=== PATIENT | male | born 1950 | race Caucasian/White ===

== ENCOUNTER → 2018-03-28 14:10 | Outpatient (CLI) | payer MEDICARE, MEDICAID, SELFPAY ==
[2018-03-28 16:03] LABS: AST(SGOT) 64 U/L (15-37); Alanine Aminotransfer ALT/SGPT 71 U/L (16-61); Albumin, Serum 3.2 g/dL (3.2-5.0); Alkaline Phosphatase 88 U/L (45-117); Bilirubin, Direct 0.42 mg/dL (0.00-0.30); Globulin 3.4 g/dL (2.2-4.2); Protein, Total 6.6 g/dL (6.4-8.2)
[2018-03-28 16:21] LABS: International Normalized Ratio 1.2
[2018-03-28 16:22] LABS: Partial Thromboplast Time 33.7 Seconds (24.1-36.2)
[2018-03-31 09:46] LABS: AFP, Tumor Marker 2.3 ng/mL (0.0-8.3)
== END ==
PROVIDERS: Family Provider Family Medicine; PCP Family Medicine; Referring Provider Internal Medicine Gastroenterology; Visit Provider Internal Medicine Gastroenterology
DX: K74.60 Unspecified cirrhosis of liver (principal); B19.20 Unspecified viral hepatitis C without hepatic coma
CPT/HCPCS: 36415; 80076; 82105; 85610; 85730

== ENCOUNTER → 2018-04-02 10:30 | Outpatient (CLI) | payer MEDICARE, MEDICAID, SELFPAY ==
--- NOTE | 2018-04-02 10:33 | US_ITS ---
STUDY: ABDOMINAL ULTRASOUND - RIGHT UPPER QUADRANT REASON FOR VISIT: Male, 68 years old. Cirrhosis. TECHNIQUE: Ultrasound evaluation of the right upper quadrant was performed with real-time and static forman-scale imaging. TECHNICAL QUALITY: Adequate. COMPARISON: None. FINDINGS: Liver: The liver measures 15.9 cm. There is a heterogeneous echogenicity of the liver. The bile ducts are dilated. There is hepatic color flow. The direction of portal flow is hepatopetal. There is no demonstrated mass lesion. Gallbladder: Moderately distended gallbladder. The gallbladder wall measures 7 mm. There is a negative sonographic Miller's sign. There is pericholecystic fluid. There are no gallstones. Common Bile Duct (C.B.D.): The common bile duct measures 6 mm. Pancreas: Normal size of the head, body and tail of the pancreas. There is normal echogenicity of the pancreas. There is no demonstrated pancreatic mass or cyst. Right Kidney: Normal size of the right kidney. The right kidney measures 10.1 cm. Normal renal cortex. The right cortex measures 1.6 cm. There is no demonstrated renal mass or cyst. There is no right hydronephrosis. US/Abdomen Limited IMPRESSION: Heterogeneous liver consistent with the history of cirrhosis. No focal mass is seen. Thickened gallbladder wall with pericholecystic edema but no tenderness or stones. Electronically Signed: Cesar Hernandez MD at 23:38 EST , Service support ,
--- OUTSIDE RECORDS SUMMARY | 2018-06-07 05:22 | XMS RPT_ITS ---
:1950 Author Organization OHIP Care Team Providers Name Role Phone MARCELLA GOMEZ Attending Unavailable MARCELLA GOMEZ Referring Unavailable Sea Box Attending Unavailable Sea Box Referring Unavailable Marcella Gomez Primary Care Unavailable Sea Box Attending Unavailable eSa Box Referring Unavailable Marcella Gomez Primary Care Unavailable PROBLEMS PROBLEMS DATE TYPE CONDITION / CODE ATTENDING STATUS SOURCE 04/03/2018 Unknown K74.60 - Sea Box [facility] [place] [facility] / K74.60(ICD-10) Repository 01/05/2008 Active Chronic hepatitis, Active [facility] unspecified / [facility] [place] K73.9(ICD-10) Repository 08/16/2005 Active Essential NA Active [facility] (primary) [facility] [place] hypertension / Repository I10(ICD-10) 02/03/2018 Active Anemia, NA Active [facility] unspecified / [facility] [place] D64.9(ICD-10) Repository 02/03/2018 Active Other abnormal NA Active [facility] glucose / [facility] [place] R73.09(ICD-10) Repository PROCEDURES PROCEDURES No Procedure Records FoundRESULTS RESULTS ABDOMEN LIMITED Observed: 04/02/2018 Status: F Source: [place] 10:33 AM [facility] REPOSITORY [facility] Imaging Services [address] [place] [address] Abdomen Limited MR#: [id number] Acct: [id number] Name: RALPH MCNAMARA Rep #: [id number] : 1950 M 68 From: Cesar Hernandez MD PCP: Marcella Gomez MD Status: REG CLI Study: Abdomen Limited Date of Exam: 04/02/18 Exam# [id number] Ordering Dr: Sea Box MD STUDY: ABDOMINAL ULTRASOUND - RIGHT UPPER QUADRANT REASON FOR VISIT: Male, 68 years old. Cirrhosis. TECHNIQUE: Ultrasound evaluation of the right upper quadrant was performed with real-time and static forman-scale imaging. TECHNICAL QUALITY: Adequate. COMPARISON: None. FINDINGS: Liver: The liver measures 15.9 cm. There is a heterogeneous echogenicity of the liver. The bile ducts are dilated. There is hepatic color flow. The direction of portal flow is hepatopetal. There is no demonstrated mass lesion. Gallbladder: Moderately distended gallbladder. The gallbladder wall measures 7 mm. There is a negative sonographic Miller's sign. There is pericholecystic fluid. There are no gallstones. Common Bile Duct (C.B.D.): The common bile duct measures 6 mm. Pancreas: Normal size of the head, body and tail of the pancreas. There is normal echogenicity of the pancreas. There is no demonstrated pancreatic mass or cyst. Right Kidney: Normal size of the right kidney. The right kidney measures 10.1 cm. Normal renal cortex. The right cortex measures 1.6 cm. There is no demonstrated renal mass or cyst. There is no right hydronephrosis. US/Abdomen Limited IMPRESSION: Heterogeneous liver consistent with the history of cirrhosis. No focal mass is seen. Thickened gallbladder wall with pericholecystic edema but no tenderness or stones. Electronically Signed: Cesar Hernandez MD at 23:38 EST , Service support , CC: Marcella Gomez MD; Sea Box Telephone Advice Nurse: Signed LIVER PROFILE Collected: 03/28/2018 Status: F Source: [place] 2:33 PM [facility] REPOSITORY TYPE CODE TESTS RESULT OUT OF RANGE REFERENCE UNITS LAB L501.1500 6.4-8.2 g/dL Normal T PROT 6.6 LAB L501.1800 3.2-5.0 g/dL Normal ALB 3.2 LAB L501.1950 2.2-4.2 g/dL Normal GLOB 3.4 LAB L501.4100 15-37 U/L High AST 64 LAB L501.4305 45-117 U/L Normal ALK P 88 LAB L501.4405 16-61 U/L High ALT 71 LAB L501.4600 0.20-1.00 mg/dL High T BILI 1.50 LAB L501.4700 0.00-0.30 mg/dL High D BILI 0.42 Performed By: #### L500.3400 #### [facility] [address] [facility] [place], [place], [address] PROTHROMBIN TIME W/INR Collected: 03/28/2018 Status: F Source: [place] 2:33 PM [facility] REPOSITORY TYPE CODE TESTS RESULT OUT OF RANGE REFERENCE UNITS LAB L300.4150 11.7-14.9 SECONDS High PROTIME 15.0 LAB L300.4200 Normal INR 1.2 Performed By: #### L300.3900, L300.4310 #### [facility] [address] [place], [address] PARTIAL THROMBOPLAST Collected: 03/28/2018 Status: F Source: [place] TIME 2:33 PM [facility] REPOSITORY TYPE CODE TESTS RESULT OUT OF RANGE REFERENCE UNITS LAB L300.4310 24.1-36.2 Seconds Normal PTT 33.7 Performed By: #### L300.3900, L300.4310 #### [facility] [address] [facility] [place], [place], [address] AFP, TUMOR MARKER Collected: 03/28/2018 Status: F Source: [place] 2:33 PM [facility] REPOSITORY Order Comment: Is Patient ? N TYPE CODE TESTS RESULT OUT OF RANGE REFERENCE UNITS LAB L3300.0700 0.0-8.3 ng/mL Normal AFP TUMOR 2.3 2253 Result Comment: [facility] Electrochemiluminescence Immunoassay (ECLIA) Values obtained with different assay methods or kits cannot be used interchangeably. Results cannot be interpreted as absolute evidence of the presence or absence of malignant disease. This test is not interpretable in females. Performed at: [facility] [id number] [employer]: Sea Rasmussen PhD, Phone: [phone] Performed By: #### L3300.0700 #### [facility] (refer to report for specific site) refer to report for address and phone number CBC AND DIFFERENTIAL Collected: 02/03/2018 Status: F Source: [place] 1:52 PM [facility] REPOSITORY TYPE CODE TESTS RESULT OUT OF REFERENCE UNITS RANGE LAB WBC 3.70-11.00 k/uL WBC 3.88 LAB RBC 4.20-6.00 m/uL Low RBC 3.83 LAB HGB 13.0-17.0 g/dL Hemoglobin 13.3 LAB HCT 39.0-51.0 % Hematocrit 39.7 LAB MCV 80.0-100.0 fL MCV High 103.7 LAB MCH 26.0-34.0 pG MCH High 34.7 LAB MCHC 30.5-36.0 g/dL MCHC 33.5 LAB RDWCV 11.5-15.0 % RDW-CV High 15.1 LAB PLTCT 150-400 k/uL Low Platelet Count 97 Result Comment: Result checked and verified No clot detected. LAB MPV 9.0-12.7 fL MPV High 13.1 LAB ANEUT % Neut% 55.6 LAB AANEUT 1.45-7.50 k/uL Abs Neut 2.15 LAB ALYMP % Lymph% 23.5 LAB AALYMP 1.00-4.00 k/uL Low Abs Lymph 0.91 LAB AMONO % Lipscomb% 9.3 LAB AAMONO <0.87 k/uL Abs Lipscomb 0.36 LAB AEOS % Eosin% 10.8 LAB AAEOS <0.46 k/uL Abs Eosin 0.42 LAB ABASO % Baso% 0.8 LAB AABASO <0.11 k/uL Abs Baso 0.03 LAB AUNRBC 0 /100 WBC NRBCs 0.0 LAB ABNRBC <0.01 k/uL Absolute nRBC <0.01 LAB DTYP DTYPE Auto Diff Performed By: #### CBCDIF, CMP, HBA1C, HCQPCR #### [facility] [address] [place], [place] [address] COMP METABOLIC PANEL Collected: 02/03/2018 Status: F Source: [place] 1:52 PM [facility] REPOSITORY TYPE CODE TESTS RESULT OUT OF REFERENCE UNITS RANGE LAB TP 6.3-8.0 g/dL Protein, Total 7.3 LAB ALB 3.9-4.9 g/dL Albumin 4.0 LAB CA 8.5-10.2 mg/dL Calcium, Total 9.1 LAB TBIL 0.2-1.3 mg/dL Bilirubin, Total 0.9 LAB ALKP 38-113 U/L Alkaline Phosphatase 85 LAB AST 14-40 U/L AST High 44 LAB GLU 74-99 mg/dL Glucose High 109 Result Comment: The [place] [employer] Association (ADA) provides guidance for cutoff values for fasting glucose and random glucose. The ADA defines fasting as no caloric intake for at least 8 hours. Fas ting plasma glucose results between 100 to 125 mg/dL indicate increased risk for diabetes (prediabetes). Fasting plasma glucose results greater than or equal to 126 mg/dL meet the criteria for diagnosis of diabetes. In the absence of unequivocal hyperglycemia, results should be confirmed by repeat testing. In a patient with classic symptoms of hyperglycemia or hyperglycemic crisis, random plasma glucose results greater than or equal to 200 mg/dL meet the criteria for diagnosis of diabetes. Reference: Standards of Medical Care in Diabetes 2016, [place] Diabetes Association. Diabetes Care. 2016.39(Suppl 1). LAB BUN 9-24 mg/dL BUN 18 LAB CRET 0.73-1.22 mg/dL Creatinine 0.86 LAB NA 136-144 mmol/L Sodium 142 LAB K 3.7-5.1 mmol/L Potassium 4.3 LAB CL 97-105 mmol/L Chloride 105 LAB CO2 22-30 mmol/L CO2 25 LAB AGAP 9-18 mmol/L Anion Gap 12 LAB ALT 10-54 U/L ALT 32 LAB GFRAA eGFR- Amer. >60 LAB GFRNAA . eGFR-All Other Races >60 Result Comment: eGFR (Estimated GFR) Units of measure: mL/min/1.73 meters squared eGFR is derived from the reexpressed MDRD Study equation using the following parameters: serum creatinine, age, gender and race. The creatinine assay has been calibrated to be traceable to IDFL. An eGFR <60 mL/min/1.73m2 for >3 months is consistent with chronic kidney disease. Refer to KDOQI guidelines for clinical interpretation. In patients with unstable renal function, e.g. those with acute kidney injury, the eGFR may not accurately reflect actual GFR. Performed By: #### CBCDIF, CMP, HBA1C, HCQPCR #### [facility] [employer] [address] [id number] HEMOGLOBIN A1C Collected: 02/03/2018 Status: F Source: [place] 1:[address] [facility] REPOSITORY TYPE CODE TESTS RESULT OUT OF REFERENCE UNITS RANGE LAB HGBA1C 4.3-5.6 % Hemoglobin A1c 4.9 Result Comment: [place] Diabetes Association guidelines indicate that patients with HgbA1c in the range 5.7-6.4% are at increased risk for development of diabetes, and intervention by lifestyle modification may be beneficial. HgbA1c greater or equal to 6.5% is considered diagnostic of diabetes. LAB HBA0 mg/dL Est. Average Glucose 94 Result Comment: eAG: (Estimated average glucose) is a calculated value from HgbA1c and is national sales representative of the average blood glucose level in the last 2-3 month period. Performed By: #### CBCDIF, CMP, HBA1C, HCQPCR #### [facility] [employer] [address] [place], [place] [address] HEPATITIS C RNA Collected: 02/03/2018 Status: F Source: [place] 1:[address] [facility] REPOSITORY TYPE CODE TESTS RESULT OUT OF RANGE REFERENCE UNITS LAB HCQPCR IU/mL Abnormal Hepatitis C RNA [id number] Alert Result Comment: INTERPRETATION: Positive for HCV RNA by PCR. The Linear Range of this assay is 15 IU/mL to 100,000,000 IU/mL. Reference Range: Negative for HCV RNA Performed By: #### CBCDIF, CMP, HBA1C, HCQPCR #### [facility] [employer] [address] [place], [place] [address] PROGRESS Observed: 02/03/2018 Status: COMPLETED Source: [place] 1:[address] [facility] REPOSITORY HNO ID: [id number] Author: Marcella D Elderbrock Service: (none) Author Type: Physician Type: Progress Notes Filed: 02/03/2018 4:14 PM Note Text: Chief Complaint Patient presents with: Recheck: Medications HPI Ralph Mcnamara is a 68 year old male who presents here today for a medication follow up. Pt here today for a medication follow up. Notes that he was to be in for a 6 mo f/u but missed it [place] to 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 HM - Declines really not wanting to get shots due to feeling pretty well. HTN - Declines checking BP at home due to his machine breaking. If out at the store will check. Denies sob or dizziness. Admits to chest pain intermittent but this is an ongoing issues. Currently taking Nadolol 40 mg once daily and Lisinopril 5 mg once daily. Pain - Chronic cervical, back, shoulder and right knee pain. Uses Gabapentin 600 mg 2-3 tab po daily if needed for pain. Does have a complaint of a left twitch on the side of his head, ongoing for the last 2-3 months. GI - Complains of diarrhea for the last few months. Stools a little more solid today, but has increased his vegetables lately which may have caused it to become more solid. Past medical history, appointments, medications, allergies reviewed. Previous Medical History PAST MEDICAL HISTORY Diagnosis Date - Chronic depressive personality disorder DEPRESSION - Cirrhosis of liver without mention of alcohol - Esophageal varices without mention of bleeding - Essential hypertension, benign HTN - Loss of weight WEIGHT LOSS - Malaise and fatigue FATIGUE - Unspecified viral hepatitis C without hepatic coma HEPATITIS C Previous Surgical History PAST SURGICAL HISTORY Procedure Laterality Date - EGD W/O BRSH SPECIMEN W/BX 12/16/08 - EGD W/O OR W/BRUSH/WASH 10/10/11 EGD - EGD W/O OR W/BRUSH/WASH 10/13/11 EGD with banding - EGD W/O OR W/BRUSH/WASH 11/12/2011 EGD - PAST SURGICAL HISTORY OF REPAIR OF FRACTURED MANDIBLE - PAST SURGICAL HISTORY OF FRACTURED FOOT REPAIR Family History FAMILY HISTORY Problem Relation Age of Onset - Heart Father mi, first disease in his late 70's - None Mother - Diabetes Brother - Heart Brother - Diabetes Sister Patient Allergies ALLERGIES Allergen Reactions - No Known Allergies Current Medications Current Outpatient Prescriptions on File Prior to Visit: gabapentin (NEURONTIN) 600 mg tablet Take 1 tablet by mouth four times daily as needed for up to 90 days. lisinopril (ZESTRIL) 5 mg tablet Take 1 tablet by mouth once daily. nadolol (CORGARD) 40 mg tablet Take 1 tablet by mouth once daily. albuterol HFA (VENTOLIN HFA) 90 mcg/actuation inhaler Inhale 2 Puffs as instructed every 4 hours as needed for Wheezing/Shortness of Breath. No current facility-administered medications on file prior to visit. 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 General Appearance: Well appearing, alert, in no acute distress, well-hydrated, well nourished.. Lungs: lungs clear to auscultation. No wheezing, rhonchi, rales. Heart: RRR without murmur, gallop, or rubs. No ectopy. Abdomen: Normal abdominal exam, Abdomen soft, non-tender. Bowel sounds normal. No masses, organomegaly. Health Maintenance List ANNUAL PCP TEAM CHRONIC DISEASE VISIT due on 1969 BP CONTROLLED (<130/80) due on 1969 LUNG CANCER SCREENING due on 2006 ADULT PREVNAR-13 due on 01/14/2016 SERUM CREATININE due on 05/17/2016 PNEUMOVAX AGE 65 AND OVER WITH 5YR LOOKBACK(1) due on 05/28/2016 LIPID SCREEN due on 11/01/2016 INFLUENZA(1) due on 11/16/2017 - Declined DIABETES SCREEN due on 05/17/2018 COLORECTAL CANCER SCREENING,SEE MODIFIER due on 06/29/2019 DTAP,TDAP,TD(3 - Td) due on 05/28/2021 PROSTATE CANCER SCREENING DISCUSSION Completed HEPATITIS C SCREENING Completed Data reviewed Future labs ASSESSMENT/PLAN: 1. Essential hypertension, benign - ICD9: 401.1, ICD10: I10 (primary diagnosis) - good control - Continue current medication(s) - Goal of BP <140/90 - NADOLOL 40 MG TABLET 2. Chronic kidney disease, stage II (mild) - ICD9: 585.2, ICD10: N18.2 - LISINOPRIL 5 MG TABLET 3. Polyneuropathy in other diseases classified elsewhere (HCC) - ICD9: 357.4, ICD10: G63 - GABAPENTIN 600 MG TABLET 4. Cervical pain - ICD9: 723.1, ICD10: M54.2 - GABAPENTIN 600 MG TABLET 5. Chronic obstructive pulmonary disease, unspecified COPD type (HCC) - ICD9: 496, ICD10: J44.9 - ALBUTEROL SULFATE HFA 90 MCG/ACTUATION AEROSOL INHALER 6. Chronic hepatitis, unspecified (HCC) - ICD9: 571.40, ICD10: K73.9 Check labs 7. Anemia, unspecified type - ICD9: 285.9, ICD10: D64.9 Check labs 6 mo f/u, complete labs today I agree with the Chief Complaint, ROS, and Past Histories independently gathered by the clinical customer support analyst and the remaining scribed note accurately describes my personal service to the patient. Marcella Gmoez MD The documentation for this note was completed by Jennifer Arrieta Ma acting as scribe for Marcella Gomez MD. February 03, 2018 1:22 PM. CNOV Observed: 02/03/2018 Status: COMPLETED Source: [place] 1:[address] [facility] REPOSITORY Office Visit (FAMPWS) RALPH MCNAMARA ([id number]) 1950 M Date Time Provider Department 02/03/18 1:20 PM MARCELLA GOMEZ During your visit today, we recorded the following information about you: Pulse Respiration Blood pressure Weight 56/minute 16/minute 136/84 74 kg Marcella Gomez MD 02/03/2018 4:14 PM Signed Chief Complaint Patient presents with: Recheck: Medications HPI Ralph Mcnamara is a 68 year old male who presents here today for a medication follow up. Pt here today for a medication follow up. Notes that he was to be in for a 6 mo f/u but missed it due to being out of state. 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 HM - Declines really not wanting to get shots due to feeling pretty well. HTN - Declines checking BP at home due to his machine breaking. If out at the store will check. Denies sob or dizziness. Admits to chest pain intermittent but this is an ongoing issues. Currently taking Nadolol 40 mg once daily and Lisinopril 5 mg once daily. Pain - Chronic cervical, back, shoulder and right knee pain. Uses Gabapentin 600 mg 2-3 tab po daily if needed for pain. Does have a complaint of a left twitch on the side of his head, ongoing for the last 2-3 months. GI - Complains of diarrhea for the last few months. Stools a little more solid today, but has increased his vegetables lately which may have caused it to become more solid. Past medical history, appointments, medications, allergies reviewed. Previous Medical History PAST MEDICAL HISTORY Diagnosis Date - Chronic depressive personality disorder DEPRESSION - Cirrhosis of liver without mention of alcohol - Esophageal varices without mention of bleeding - Essential hypertension, benign HTN - Loss of weight WEIGHT LOSS - Malaise and fatigue FATIGUE - Unspecified viral hepatitis C without hepatic coma HEPATITIS C Previous Surgical History PAST SURGICAL HISTORY Procedure Laterality Date - EGD W/O BRSH SPECIMEN W/BX 12/16/08 - EGD W/O OR W/BRUSH/WASH 10/10/11 EGD - EGD W/O OR W/BRUSH/WASH 10/13/11 EGD with banding - EGD W/O OR W/BRUSH/WASH 11/12/2011 EGD - PAST SURGICAL HISTORY OF REPAIR OF FRACTURED MANDIBLE - PAST SURGICAL HISTORY OF FRACTURED FOOT REPAIR Family History FAMILY HISTORY Problem Relation Age of Onset - Heart Father mi, first disease in his late 70's - None Mother - Diabetes Brother - Heart Brother - Diabetes Sister Patient Allergies ALLERGIES Allergen Reactions - No Known Allergies Current Medications Current Outpatient Prescriptions on File Prior to Visit: gabapentin (NEURONTIN) 600 mg tablet Take 1 tablet by mouth four times daily as needed for up to 90 days. lisinopril (ZESTRIL) 5 mg tablet Take 1 tablet by mouth once daily. nadolol (CORGARD) 40 mg tablet Take 1 tablet by mouth once daily. albuterol HFA (VENTOLIN HFA) 90 mcg/actuation inhaler Inhale 2 Puffs as instructed every 4 hours as needed for Wheezing/Shortness of Breath. No current facility-administered medications on file prior to visit. 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 General Appearance: Well appearing, alert, in no acute distress, well-hydrated, well nourished.. Lungs: lungs clear to auscultation. No wheezing, rhonchi, rales. Heart: RRR without murmur, gallop, or rubs. No ectopy. Abdomen: Normal abdominal exam, Abdomen soft, non-tender. Bowel sounds normal. No masses, organomegaly. Health Maintenance List ANNUAL PCP TEAM CHRONIC DISEASE VISIT due on 1969 BP CONTROLLED (<130/80) due on 1969 LUNG CANCER SCREENING due on 2006 ADULT PREVNAR-13 due on 01/14/2016 SERUM CREATININE due on 05/17/2016 PNEUMOVAX AGE 65 AND OVER WITH 5YR LOOKBACK(1) due on 05/28/2016 LIPID SCREEN due on 11/01/2016 INFLUENZA(1) due on 11/16/2017 - Declined DIABETES SCREEN due on 05/17/2018 COLORECTAL CANCER SCREENING,SEE MODIFIER due on 06/29/2019 DTAP,TDAP,TD(3 - Td) due on 05/28/2021 PROSTATE CANCER SCREENING DISCUSSION Completed HEPATITIS C SCREENING Completed Data reviewed Future labs ASSESSMENT/PLAN: 1. Essential hypertension, benign - ICD9: 401.1, ICD10: I10 (primary diagnosis) - good control - Continue current medication(s) - Goal of BP <140/90 - NADOLOL 40 MG TABLET 2. Chronic kidney disease, stage II (mild) - ICD9: 585.2, ICD10: N18.2 - LISINOPRIL 5 MG TABLET 3. Polyneuropathy in other diseases classified elsewhere (HCC) - ICD9: 357.4, ICD10: G63 - GABAPENTIN 600 MG TABLET 4. Cervical pain - ICD9: 723.1, ICD10: M54.2 - GABAPENTIN 600 MG TABLET 5. Chronic obstructive pulmonary disease, unspecified COPD type (HCC) - ICD9: 496, ICD10: J44.9 - ALBUTEROL SULFATE HFA 90 MCG/ACTUATION AEROSOL INHALER 6. Chronic hepatitis, unspecified (HCC) - ICD9: 571.40, ICD10: K73.9 Check labs 7. Anemia, unspecified type - ICD9: 285.9, ICD10: D64.9 Check labs 6 mo f/u, complete labs today I agree with the Chief Complaint, ROS, and Past Histories independently gathered by the clinical customer support analyst and the remaining scribed note accurately describes my personal service to the patient. Marcella Gomez MD The documentation for this note was completed by Jennifer Arrieta Ma acting as scribe for Marcella Gomez MD. February 03, 2018 1:22 PM. 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) [G63] Cervical pain [M54.2] Chronic obstructive pulmonary disease, unspecified COPD type (HCC) [J44.9] Chronic hepatitis, unspecified (HCC) [K73.9] Anemia, unspecified type [D64.9] Elevated glucose [R73.09] Order(s):lisinopril (ZESTRIL) 5 mg tabletTake 1 tablet by mouth once daily.Disp: 30 tabletRfl: 12 nadolol (CORGARD) 40 mg tabletTake 1 tablet by mouth once daily.Disp: 30 tabletRfl: 12 gabapentin (NEURONTIN) 600 mg tabletTake 1 tablet by mouth four times daily as needed for up to 180 days.Disp: 120 tabletRfl: 5 albuterol HFA (VENTOLIN HFA) 90 mcg/actuation inhalerInhale 2 Puffs as instructed every 4 hours as needed for Wheezing/Shortness of Breath.Disp: 1 InhalerRfl: 2 HCV QUANT RNA BY PCR [SQHCQPCR] Order #: [id number] FUTURE COMP METABOLIC PANEL [SQCMP] Order #: [id number] FUTURE CBC + DIFF [SQCBCDIF] Order #: [id number] FUTURE HGB A1C [CWRPI6N] Order #: [id number] FUTURE Prescriptions as of 02/03/2018 Sig: LISINOPRIL 5 MG TABLET Take 1 tablet by mouth once d* NADOLOL 40 MG TABLET Take 1 tablet by mouth once d* GABAPENTIN 600 MG TABLET Take 1 tablet by mouth four t* ALBUTEROL SULFATE HFA 90 MCG/* Inhale 2 Puffs as instructed * Problem List As Of Date 02/03/2018 Noted Resolved BENIGN HYPERTENSION [I10] INVALID FOR* CHRONIC HEPATITIS NOS [K73.9] INVALID FOR* More... LUMBAGO [M54.5] INVALID FOR* HYPERTENSION NOS [I10] INVALID FOR* NEUROPATHY IN OTHER DIS [G63] INVALID FOR* CIRRHOSIS OF LIVER NOS [K74.60] INVALID FOR* CHRONIC KIDNEY DISEASE, STAGE II (MILD) [N18.2] INVALID FOR* More... Unspecified Anemia [D64.9] INVALID FOR* Esophageal Varices without Mention of Bleeding *INVALID FOR* Acute Gastritis without Mention of Hemorrhage [*INVALID FOR* Thrombocytopenia [D69.6] INVALID FOR* COPD (chronic obstructive pulmonary disease) [J*INVALID FOR* History of drug abuse [Z87.898] INVALID FOR* Cervical pain [M54.2] INVALID FOR* Prescriptions ordered this encounter Disp Refills Start End LISINOPRIL 5 MG TABLET 30 t* 12 02/03/2018 Route: ORAL Sig: Take 1 tablet by mouth once daily. NADOLOL 40 MG TABLET 30 t* 12 02/03/2018 Route: ORAL Sig: Take 1 tablet by mouth once daily. GABAPENTIN 600 MG TABLET 120 * 5 02/03/2018 08/02/2018 Route: ORAL Sig: Take 1 tablet by mouth four times daily as needed for up to 180 days. ALBUTEROL SULFATE HFA 90 MCG/ACTUATI* 1 In* 2 02/03/2018 Route: INHALATION Sig: Inhale 2 Puffs as instructed every 4 hours as needed for Wheezing/Shortness of Breath. Medications Discontinued During This Encounter lisinopril (ZESTRIL) 5 mg tablet 30 t* 12 01/25/2017 02/03/2018 Route: ORAL Sig: Take 1 tablet by mouth once daily. Disc: Reason for discontinue is not on file. nadolol (CORGARD) 40 mg tablet 30 t* 12 01/25/2017 02/03/2018 Route: ORAL Sig: Take 1 tablet by mouth once daily. Disc: Reason for discontinue is not on file. gabapentin (NEURONTIN) 600 mg tablet 120 * 2 11/15/2017 02/03/2018 Route: ORAL Sig: Take 1 tablet by mouth four times daily as needed for up to 90 days. Disc: Reason for discontinue is not on file. albuterol HFA (VENTOLIN HFA) 90 mcg/* 1 In* 2 01/25/2017 02/03/2018 Route: INHALATION Sig: Inhale 2 Puffs as instructed every 4 hours as needed for Wheezing/Shortness of Breath. Disc: Reason for discontinue is not on file. Disposition: Return in about 6 months (around 08/03/2018). Follow-up and Disposition History Recorded Encounter Status:Closed by MARCELLA GOMEZ MD on 02/03/18 IRMA Observed: 07/09/2017 Status: COMPLETED Source: [place] 12:[address] [facility] REPOSITORY Patient Outreach ([facility]) RALPH MCNAMARA ([id number]) 1950 M Date Time Provider Department 07/09/17 MARCELLA GOMEZ [facility] During your visit today, we recorded the following information about you: Allergies As of Date: 07/09/2017 Noted Allergy Reaction NO KNOWN ALLERGIES 06/13/2009 Date Reviewed: 01/22/2017 Reviewed by: Marisela Alvarez Ma - Fully Assessed Visit Diagnosis:Medication management [Z79.899] Order(s):BASIC METABOLIC PNL [SQBMP] Order #: [id number] FUTURE HGB A1C [RXOGY9O] Order #: [id number] FUTURE LIPID PANEL BASIC [SQLIPB] Order #: [id number] FUTURE Prescriptions as of 07/09/2017 Sig: LISINOPRIL 5 MG TABLET Take 1 tablet by mouth once d* NADOLOL 40 MG TABLET Take 1 tablet by mouth once d* ALBUTEROL SULFATE HFA 90 MCG/* Inhale 2 Puffs as instructed * X GABAPENTIN 600 MG TABLET Take 1 tablet by mouth four t* Problem List As Of Date 07/09/2017 Noted Resolved BENIGN HYPERTENSION [I10] INVALID FOR* CHRONIC HEPATITIS NOS [K73.9] INVALID FOR* More... LUMBAGO [M54.5] INVALID FOR* HYPERTENSION NOS [I10] INVALID FOR* NEUROPATHY IN OTHER DIS [G63] INVALID FOR* CIRRHOSIS OF LIVER NOS [K74.60] INVALID FOR* CHRONIC KIDNEY DISEASE, STAGE II (MILD) [N18.2] INVALID FOR* More... Unspecified Anemia [D64.9] INVALID FOR* Esophageal Varices without Mention of Bleeding *INVALID FOR* Acute Gastritis without Mention of Hemorrhage [*INVALID FOR* Thrombocytopenia [D69.6] INVALID FOR* COPD (chronic obstructive pulmonary disease) [J*INVALID FOR* History of drug abuse [Z87.898] INVALID FOR* Cervical pain [M54.2] INVALID FOR* Encounter Status:Closed by [employer], PRODUSER on 12/27/17 ALLERGIES ALLERGIES DATE TYPE / CODE NAME / CODE REACTION SEVERITY SOURCE 06/13/2009 Drug NO KNOWN [facility] Class/49121 ALLERGIES [address] [place] 1003(SNOMED Repository CT) ENCOUNTERS ENCOUNTERS ADMIT/DISCHARGE ACCOUNT ADMITTING ENCOUNTER LOCATION SOURCE NUMBER CLASS 04/02/2018 [id number] General acute hospital ing:US Repository 03/28/2018 [id number] General acute hospital ing:MTLAB Repository 02/03/2018/02/04/20 [id number] Ambulatory [address] Repository 02/03/2018/02/05/20 [id number] Ambulatory [address] Repository PAYERS PAYERS ENCOUNTER GUARANTOR PAYER SUBSCRIBER SOURCE 04/02/2018 RALPH W Primary RALPH W Devan [id number] Insurance:MEDICARE TORRENCEDOB: [address], PART A [id number] [address]Lcj: Number: Repository [id number] () Date:2018-03-28 04/02/2018 Secondary RALPH W Devan Insurance:MEDICAIDPol TORRENCEDOB: Community icy Number: [id number] [facility] [id number] Repository Date:2018-03-28 04/02/2018 Tertiary NOT GIVENUNK [place] Insurance:SELF PAY [facility] Number: Effective Repository Date:2018-03-28 03/28/2018 RALPH W Primary RALPH W Devan [id number] Insurance:MEDICARE TORRENCEDOB: [address], PART A [id number] [address]Ket: Number: Repository [id number] (HP) Date:2018-03-28 03/28/2018 Secondary RALPH W [place] Insurance:MEDICAIDPol TORRENCEDOB: Community icy Number: [id number] [facility] [id number] Repository Date:2018-03-28 03/28/2018 Tertiary NOT GIVENUNK [place] Insurance:SELF PAY [facility] Number: Effective Repository Date:2018-03-28
== END ==
PROVIDERS: Family Provider Family Medicine; PCP Family Medicine; Referring Provider Internal Medicine Gastroenterology; Visit Provider Internal Medicine Gastroenterology
DX: K74.60 Unspecified cirrhosis of liver (principal)
CPT/HCPCS: 76705

== ENCOUNTER 2018-04-15 13:12 | Emergency (ER) | payer MEDICARE, MEDICAID, SELFPAY ==
[2018-04-15 13:13] VITALS: BP 150/91; PULSE 58; RESP 16; TEMP 36.6; O2SAT 97; BMI 24.3
--- NOTE | 2018-04-15 14:06 | RAD_ITS ---
STUDY: X-RAY - UNILATERAL RIBS ( RIGHT ) WITH CHEST REASON FOR EXAM: Male, 68 years old. With pain following a fall. TECHNIQUE - RIBS: 4 view(s) of the ribs. TECHNIQUE - CHEST: Single AP portable view of the chest. COMPARISON: None. FINDINGS - RIBS: Normal visualized ribs without a demonstrated fracture. FINDINGS - CHEST: The lungs are clear and expanded. There is no demonstrated pleural abnormality. There is borderline cardiomegaly. Normal mediastinum and juve. Normal visualized pulmonary arteries. There is atherosclerotic tortuosity of the aortic arch and descending thoracic aorta. Normal visualized thoracic spine. There is degenerative osteoarthritis of the bilateral shoulders. There is no demonstrated abnormality of the visualized soft tissue structures of the upper abdomen. RAD/Ribs Uni Min 3V w/PA Chest IMPRESSION: RIBS: Normal x-ray examination of the ribs. CHEST: No acute abnormality is seen. Electronically Signed: Gabe Urbina MD at 15:15 EST , Service support ,
--- NOTE | 2018-04-15 14:07 | RAD_ITS ---
STUDY: X-RAY - LEFT SHOULDER REASON FOR EXAM: Male, 68 years old. Pain following a fall. TECHNIQUE: 4 view(s) of the shoulder. COMPARISON: None. FINDINGS: Normal glenohumeral articulation. There is degenerative arthrosis of the acromioclavicular joint without inferior osseous spur formation. Narrowing of the space between the humeral head and the acromion suggestive of rotator cuff disease. Normal acromion. Normal humeral head and visualized proximal humerus. The soft tissue structures are unremarkable. Normal visualized pulmonary apex. RAD/Shoulder min 2 Views IMPRESSION: Mild degenerative changes of the acromioclavicular joint. Narrowing of the space between the humeral head and the acromion is suggestive of rotator cuff disease. Electronically Signed: Gabe Urbina MD at 15:14 EST , Service support ,
[2018-04-15] MEDS: HYDROcodone Bitartrate/Apap 5/325 Tablet PO (14:56)
--- NOTE | 2018-04-15 15:07 | ED.VISSUMM ---
- ER Visit Summary Date of Service: 04/15/18 Chief Complaint: Fell on the ice History of Present Illness: The patient is a 68 M tree of hepatitis C, cirrhosis, renal insufficiency and hypertension. Patient states he fell on the ice today his legs and apparently landed on his right rib cage. Denies hitting his head. Denies hitting his left shoulder was is also having left shoulder pain. He denies any headache or neck pain. He is on no blood thinners. He denies any abdominal pain. Physical Examination: Older male no acute distress. Vital signs are stable he is afebrile. Pulse ox 97% room air no signs of hypoxia. H EENT exam unremarkable. No signs of trauma to his face or scalp nontender. Pupils round reactive light. No dental injury. C-spine, T-spine, L-spine nontender. Back nontender except for his right lateral rib cage. There is no ecchymosis or bruising. No subcu air or crepitance. No CVA tenderness. Lungs clear to auscultation bilaterally. Heart regular rate and rhythm no murmur rate about 60. His right anterior lateral chest wall is tender palpation. There is no crepitus or subcu air. No bruising. No bony deformities. Left rib cage is tender. No deformity. Abdomen soft. Nontender. Nondistended normal bowel sounds no peritoneal signs. She is moving all 4 extremities. Neurovascular intact. He has mild tenderness to his left shoulder but there is no deformity and is normal range of motion. Elbow forearm, left wrist and left hand are unremarkable. Right upper extremity both lower extremities are unremarkable normal range of motion nontender. Neurologically is awake alert with no focal motor deficits. Test Results: Left shoulder x-ray shows no acute abnormality. Chest x-ray and rib films show no acute fracture. No pneumothorax. No hemothorax. No acute abnormalities. Emergency Department Course and Treatment: Patient treated with [place] x2 for pain. Repeat exam is doing well. Patient given prescription for [place] for pain. Treatment Plan: [place] Motrin for pain. Ice to his chest wall. Pillow for support. Follow-up with not improving. Disposition: Discharge Impression: Slipped and fell on the ice Right rib cage contusions Left shoulder strain This note was generated with [employer] dictation software. It may contain incorrect words, spelling, and punctuation that were not noted in review of the chart prior to signing ED Disposition - Plan for ED Patient: Chief Complaint: Fall Referrals: Derrick Al MD [Primary Care Provider] -
--- NOTE | 2018-04-15 15:12 | ED.DEP ---
ED Disposition - Plan for ED Patient: Disposition: Home or Assisted Living Chief Complaint: Fall Instructions: ED Contusion Vs Minor Fx Rib, ED Sprain Shoulder Prescriptions: Hydrocodone Bitart/Apap 5-325 [[place] 5MG-325MG] 1 - 2 tab PO Q4H PRN PRN 5 Days #20 tab PRN Reason: Pain Referrals: Derrick Al MD [Primary Care Provider] - 1 Week if not improving Additional Instructions: Ice to right rib cage. Pillow for support. [place] and Motrin for pain. Follow-up in 1-2 weeks not improving.
--- NOTE | 2018-04-15 15:16 | DCINST.ED_ITS ---
ED Disposition - Plan for ED Patient: Disposition: Home or Assisted Living Chief Complaint: Fall Instructions: ED Contusion Vs Minor Fx Rib, ED Sprain Shoulder Prescriptions: Hydrocodone Bitart/Apap 5-325 [[place] 5MG-325MG] 1 - 2 tab PO Q4H PRN PRN 5 Days #20 tab PRN Reason: Pain Referrals: Derrick Al MD [Primary Care Provider] - 1 Week if not improving Additional Instructions: Ice to right rib cage. Pillow for support. [place] and Motrin for pain. Follow-up in 1-2 weeks not improving.
[2018-04-15 15:23] VITALS: BP 133/82; PULSE 58; RESP 16; O2SAT 97
== END 2018-04-15 15:24 | disposition home or self-care (01) ==
PROVIDERS: Emergency Provider Emergency Medicine; Family Provider Family Medicine; PCP Family Medicine
DX: S20.211A Contusion of right front wall of thorax, initial encounter (principal); S46.912A Strain of unspecified muscle, fascia and tendon at shoulder and upper arm level, left arm, initial encounter; W00.0XXA Fall on same level due to ice and snow, initial encounter; Y93.9 Activity, unspecified; Y92.9 Unspecified place or not applicable; I10 Essential (primary) hypertension; K74.60 Unspecified cirrhosis of liver; N28.9 Disorder of kidney and ureter, unspecified; Z86.19 Personal history of other infectious and parasitic diseases; Z79.899 Other long term (current) drug therapy
CPT/HCPCS: 71101; 73030; 99284

== ENCOUNTER → 2018-11-03 | Outpatient (CLI) | payer MEDICARE, MEDICAID, SELFPAY ==
[2018-11-05 03:06] LABS: HCV Quant. RNA PCR HCV Not Detected IU/mL (.)
== END | disposition home or self-care (01) ==
LOC: LAB.FUTURE 11:27
PROVIDERS: Family Provider Family Medicine; PCP Family Medicine; Referring Provider Internal Medicine Gastroenterology; Visit Provider Internal Medicine Gastroenterology
DX: B19.20 Unspecified viral hepatitis C without hepatic coma (principal)
CPT/HCPCS: 36415; 87522

== ENCOUNTER → 2019-10-06 16:38 | Outpatient (CLI) | payer MEDICARE, MEDICAID, SELFPAY ==
[2019-10-06 17:35] LABS: Hematocrit 38.1 % (40-54); Hemoglobin 12.7 g/dL (13.0-16.5); Mean Corp Hgb Conc 33.3 g/dL (32-36); Mean Corpuscular Volume 107.9 fL (80-94); Mean Platelet Vol. 11.8 fl (6.2-12.0); Platelet Count 224 K/mm3 (150-450); RBC Distribution Width CV 15.9 % (11.6-14.6); RBC Distribution Width SD 63.3 fl (35.1-43.9); Red Blood Count 3.53 M/mm3 (4.6-6.2); White Blood Count 4.5 K/mm3 (4.4-11.0)
[2019-10-06 17:42] LABS: Prothrombin Time (Protime)PT. 12.7 SECONDS (11.7-14.9)
[2019-10-06 17:43] LABS: Partial Thromboplast Time 28.3 Seconds (24.1-36.2)
[2019-10-06 18:06] LABS: ALB/GLOB Ratio 0.7 RATIO (0.9-2.4); AST(SGOT) 85 U/L (15-37); Alanine Aminotransfer ALT/SGPT 82 U/L (16-61); Alkaline Phosphatase 159 U/L (45-117); Anion Gap 3 (5-15); BUN 24 mg/dL (7-18); BUN/Creat Ratio 25.6 RATIO (10-20); CRP 5.42 mg/L (0.0-3.0); Calcium,Total 8.8 mg/dL (8.5-10.1); Chloride 107 mmol/L (98-107); Creatinine, Serum 0.94 mg/dL (0.70-1.30); EST Glomerular Filtration Rate 85 mL/min (>60); Est Glom Filt Rate - Afr Amer 103 mL/min (>60); Globulin 4.3 g/dL (2.2-4.2); Glucose 92 mg/dL (74-106); Potassium 4.1 mmol/L (3.5-5.1); Protein, Total 7.3 g/dL (6.4-8.2); Sodium Level 138 mmol/L (136-145)
== END ==
PROVIDERS: PCP Family Medicine; Referring Provider Internal Medicine Gastroenterology; Visit Provider Internal Medicine Gastroenterology
DX: K74.60 Unspecified cirrhosis of liver (principal)
CPT/HCPCS: 36415; 80053; 82105; 85027; 85610; 85730; 86140

== ENCOUNTER → 2019-10-13 16:57 | Outpatient (CLI) | payer MEDICARE, MEDICAID, SELFPAY ==
--- NOTE | 2019-10-13 17:04 | CT_ITS ---
STUDY: CT ABDOMEN WITH CONTRAST REASON FOR EXAM: Male, 69 years old. CIRRHOSIS AND DIARRHEA RADIATION DOSAGE (If Supplied By Facility): CTDIvol = ( 11.60 ) mGy, DLP = ( 279.32 ) mGycm TECHNIQUE: Transaxial images were obtained post I.V. administration of 75 CC ISOVUE 370, and with oral contrast. Sagittal and coronal images were reconstructed. Individualized dose optimization techniques were used for this CT. COMPARISON: None. FINDINGS: The visualized lung bases are unremarkable. The visualized portions of the heart are within normal limits. Extensive and dilated esophageal varices. There is a diffuse contour abnormality of the liver and marked heterogeneity consistent with severe cirrhotic changes. Liver masses are not excluded. Normal gallbladder and extrahepatic biliary system. Heterogeneous, normal-sized spleen. Normal pancreas. Extensive epigastric varices. Heterogeneous 6 cm solid right adrenal mass. Mildly large left adrenal gland. Normal right kidney. Normal left kidney. Normal visualized stomach. Normal small intestine. Normal colon. There is non-visualization of the appendix. Mild ascites. Diffuse increased density of the abdominal and pelvic fat consistent with edema. There is diffuse atherosclerotic calcification of the abdominal aorta, without a demonstrated aneurysm. Normal inferior vena cava. Normal retroperitoneum. Normal abdominal wall. There are diffuse degenerative changes of the visualized lumbar spine. CT/Abdomen WITH IV Contrast IMPRESSION: Findings consistent with severe cirrhosis and evidence for portal hypertension with extensive varices. Liver masses are not excluded. 6 cm right adrenal mass, recommend six-month follow-up. Electronically Signed: Cesar Hernandez MD at 18:46 EDT , Service support ,
== END ==
PROVIDERS: PCP Family Medicine; Referring Provider Internal Medicine Gastroenterology; Visit Provider Internal Medicine Gastroenterology
DX: K74.60 Unspecified cirrhosis of liver (principal)
CPT/HCPCS: 74160; Q9967

== ENCOUNTER → 2019-10-23 13:23 | Outpatient (CLI) | payer MEDICARE, MEDICAID, SELFPAY ==
--- NOTE | 2019-10-23 13:28 | MRI_ITS ---
STUDY: MRI ABDOMEN WITH AND WITHOUT CONTRAST REASON FOR EXAM: Male, 69 years old. ATTN: LIVER Cirrhosis, abn. CT, portal hypertension. TECHNIQUE: Standardized fat and water weighted pulse sequences were obtained in all 3 orthogonal planes post contrast administration. 13ml IV Dotarem was administered for the contrast portion of the examination. COMPARISON: CT 10/13/2019 FINDINGS: The visualized lung bases are unremarkable. The visualized portions of the heart are within normal limits. Moderate amount of ascites. There is a diffuse contour abnormality of the liver consistent with cirrhotic changes. There are multiple T2 hyperintense enhancing masses of the liver worrisome for multifocal hepatocellular carcinoma or metastatic disease. The largest lesion is in the posterior segment the right lobe of the liver and measures 9 cm in diameter. Prominent esophageal varices consistent with the portosystemic shunt from portal hypertension. Normal gallbladder and extrahepatic biliary system. Small splenic cyst. Normal pancreas. 4 cm enhancing mass of the right adrenal gland does not demonstrate signal loss on the out of phase gradient echo images. Possibilities include an atypical adenoma, adrenal cortical carcinoma, or metastatic disease. Normal left adrenal gland. Normal right kidney. Normal left kidney. Normal visualized stomach. Normal small intestine. Normal colon. There is non-visualization of the appendix. Normal abdominal aorta. Normal inferior vena cava. Normal retroperitoneum. Normal abdominal wall. Normal osseous structures. MRI/MRI Abd WITH and W/O Contrast IMPRESSION: 1. Cirrhosis with a moderate amount of ascites and multiple enhancing masses worrisome for multifocal hepatocellular carcinoma or metastatic disease largest lesion in the posterior segment the right lobe measuring 9 cm. 2. 4 cm enhancing mass of the right adrenal gland. Differential diagnosis includes atypical adenoma, adrenal cortical carcinoma, or metastatic disease. Electronically Signed: Edmund Angulo MD at 8:44 EDT Tel , Service support ,
== END ==
PROVIDERS: PCP Family Medicine; Referring Provider Internal Medicine Gastroenterology; Visit Provider Internal Medicine Gastroenterology
DX: K74.60 Unspecified cirrhosis of liver (principal)
CPT/HCPCS: 74183; A9575

== ENCOUNTER 2019-11-11 16:37 | Inpatient (IN) | payer MEDICARE, MEDICAID, SELFPAY ==
[2019-11-11] VITALS (8 sets, daily range): BP systolic 99–125; BP diastolic 61–88; PULSE 61–86; RESP 18–20; TEMP 36–36.8; O2SAT 97–100; BMI 22.8; BMI 21.6
--- NOTE | 2019-11-11 16:46 | RAD_ITS ---
STUDY: X-RAY - PELVIS AND LEFT HIP REASON FOR EXAM: Male, 69 years old. fall, left hip pain TECHNIQUE: Reason views of the pelvis and hip. COMPARISON: None. FINDINGS: There is a non-specific bowel gas pattern. Normal visualized soft tissue structures. Normal bilateral iliac wings, sacroiliac joints and visualized sacrum. Normal bilateral superior and inferior pubic rami. Normal pubic symphysis. Normal bilateral ischial tuberosities. There is an acute spiral fracture of the subtrochanteric femoral shaft with overlapping and lateral angulation of fracture fragments. RAD/HIP, UNI W/ Pelvis 2-3 Views IMPRESSION: Acute displaced and angulated subtrochanteric fracture of the left hip Electronically Signed: Christiano Cartwright MD at 17:30 EDT , Service support ,
[2019-11-11] MEDS: 0.9% Normal Saline 1,000 ML 1000 ML IV (16:54)
--- NOTE | 2019-11-11 17:10 | RAD_ITS ---
STUDY: X-RAY CHEST REASON FOR EXAM: Male, 69 years old. Pre-op for hip fracture TECHNIQUE: 2 AP portable views COMPARISON: 2011 FINDINGS: EKG leads overlie the chest. There are interstitial changes of the lungs. There is no demonstrated pleural abnormality. Normal size heart. Normal mediastinum and juve. Normal visualized pulmonary arteries. Normal visualized aortic arch and descending thoracic aorta. Normal visualized thoracic spine. Normal visualized ribs, clavicles, and shoulders. There is no demonstrated abnormality of the visualized soft tissue structures of the upper abdomen. RAD/Chest 1 View (Portable) IMPRESSION: Chronic interstitial changes, no superimposed acute pulmonary process Electronically Signed: Bautista Collins MD at 17:33 EDT , Service support ,
[2019-11-11 17:50] LABS: Anion Gap 8 (5-15); BUN 30 mg/dL (7-18); Calcium,Total 8.6 mg/dL (8.5-10.1); Chloride 106 mmol/L (98-107); Creatinine, Serum 1.25 mg/dL (0.70-1.30); EST Glomerular Filtration Rate 61 mL/min (>60); Est Glom Filt Rate - Afr Amer 74 mL/min (>60); Glucose 118 mg/dL (74-106); Potassium 3.8 mmol/L (3.5-5.1); Sodium Level 140 mmol/L (136-145)
[2019-11-11] MEDS: fentaNYL 100 MCG/2 ML Ampul 50 MCG IV ×2 (17:55→18:31)
--- NOTE | 2019-11-11 17:56 | ED.VISSUMM ---
- ER Visit Summary Date of Service: 11/11/19 Chief Complaint: Left hip injury History of Present Illness: The patient is a 69 M who fell, his dog pulled him. He landed on his left hip. He complains of pain to the area. Denies any other injuries. Not on blood thinners. EMS gave fentanyl and a bag of fluids. Physical Examination: Blood pressure 99/68. Otherwise vitals unremarkable. Heart is regular. Lungs clear. Abdomen soft. Left hip is tender to palpation, shortened, rotated. Neurovascular intact distally. Test Results: EKG showed what appeared to be atrial fibrillation at a rate of 80. CBC pending. Coags pending. Glucose 118 and BUN 30. Chest x-ray shows chronic changes. Left hip shows a sub-troches fracture. Emergency Department Course and Treatment: Patient received IV fluids for a borderline blood pressure. He had no evidence of bleeding or other evidence of shock. His blood pressure improved and he received fentanyl. X-ray showed left hip fracture. Work-up still pending. He does have an EKG which shows what appears to be atrial fibrillation. No history of this. Rate is normal. Patient was discussed with the hospitalist and orthopedics and will be admitted for further care. Treatment Plan: As above Disposition: Admission Impression: Left hip fracture, atrial fibrillation This note was generated with [employer] dictation software. It may contain incorrect words, spelling, and punctuation that were not noted in review of the chart prior to signing ED Disposition - Plan for ED Patient: Referrals: Derrick Al MD [Primary Care Provider] -
--- NOTE | 2019-11-11 18:00 | PCM.HP.STD ---
Problem List (1) Closed left hip fracture Status: Acute Qualifiers: Encounter type: initial encounter Qualified Code(s): S72.002A - Fracture of unspecified part of neck of left femur, initial encounter for closed fracture (2) New onset a-fib Status: Acute (3) Hepatitis C Status: Chronic Qualifiers: Viral hepatitis chronicity: unspecified Hepatic coma status: without hepatic coma Qualified Code(s): B19.20 - Unspecified viral hepatitis C without hepatic coma (4) Liver cirrhosis Status: Chronic Qualifiers: Hepatic cirrhosis type: unspecified hepatic cirrhosis Ascites presence: without ascites Qualified Code(s): K74.60 - Unspecified cirrhosis of liver (5) HTN (hypertension) Status: Chronic Qualifiers: Hypertension type: essential hypertension Qualified Code(s): I10 - Essential (primary) hypertension (6) Tobacco use Status: Chronic (7) Anxiety and depression Status: Chronic (8) Anemia Status: Chronic Qualifiers: Anemia type: unspecified type Qualified Code(s): D64.9 - Anemia, unspecified History of Present Illness Date of Admission: 11/11/19 Chief Complaint: Fall, L hip intractable pain The patient is a 69 y/o M w/ PMHx: Hepatitis C with Liver Cirrhosis following w/ Dr. Box, HTN, Chronic neuropathy, Former Tobacco use who presents to the [facility] ED on 11/11/19 with history of being pulled over by his dog, falling onto his left side with intractable pain and debility as well as malrotation prompting ED presentation. Patient does note that secondary to the disability and severe pain he laid on the ground for quite a while. Patient currently rating his pain 10 out of 10 in severity, sharp, constant. Patient continues to have sensation to his left lower extremity and peripheral pulses intact. He was administered IV fluids on route by EMS. Upon ED presentation patient was noted to be rate controlled atrial fibrillation and denies having ever had this prior but does state that over the last at least 2 to 3 months he has noted some irregular palpitations but no concurrent chest pain, dyspnea associated. He notes he is normally very active. Work-up in the ED included T 97.6, heart rate 69, BP initially 99/60 with improvement to 125/82 with IV fluids, respiratory rate 20, 97% room air, CBC with WBC 7, hemoglobin 10.5, platelet 304 with no's left shift noted, noted lymphopenia, MCV 106.9,, coags pending upon requested evaluation of patient, BMP with BUN/creatinine 30/1.25, glucose 118, plain film of the left hip and pelvis with an acute displaced and angulated subtrochanteric fracture of the left hip, chest x-ray with chronic interstitial changes with no acute cardiopulmonary findings, EKG with new onset atrial fibrillation unknown to him. In the ED patient administered normal saline 1L as well as fentanyl 50 mcg IV x1. Past Medical History Past Medical History (Chronic Problems): Chronic Problems Hepatitis C (Chronic) Liver cirrhosis (Chronic) HTN (hypertension) (Chronic) Tobacco use (Chronic) Anxiety and depression (Chronic) Anemia (Chronic) Allergies No Known Allergies Allergy (Verified 04/15/18 13:16) Home Medications: Ambulatory Orders Medication Instructions Recorded Lisinopril 5 mg PO DAILY 04/15/18 Duloxetine HCl 60 mg PO DAILY 11/11/19 Furosemide [Lasix] 40 mg PO DAILY 11/11/19 Gabapentin 600 mg PO 4X/DAY 11/11/19 Metoprolol Succinate [Toprol Xl] 100 mg PO 11/11/19 Spironolactone [Aldactone] 50 - 100 mg PO DAILY 11/11/19 Tamsulosin HCl 0.4 mg PO QHS 11/11/19 Surgical History: - - Patient denies any prior surgical history. Psychiatric History: Anxiety, Depression Lives: Alone Smoking Status: Current every day smoker - Patient notes ongoing cigar 1-3 daily smoking usage. Tobacco Use: Cigars Alcohol: None Drugs: - - Patient notes distant history of IV drug abuse, clean for many years. - *Family History Maternal History Items: Heart Disease Paternal History Items: Heart Disease Review of Systems Constitutional: Reports: Malaise, Weakness, Fatigue. Denies: Anorexia, Chills, Fever, Weight Change HEENT: Denies: Head Aches, Sinus Congestion, Sinus Drainage Cardiovascular: Reports: Palpitations. Denies: Chest Pain, Chest Pressure, Chest Tightness, Light Headedness, Orthopnea, Syncope Respiratory: Denies: Cough, Shortness of Breath, Shortness of breath at rest, Shortness of breath upon exertion, Sputum production, Wheezing Gastrointestinal: Denies: Abdominal Pain, Nausea, Vomiting Genitourinary: Denies: Dysuria Musculoskeletal: Reports: Joint Pain, Joint stiffness, Joint swelling, Joint Tenderness, Leg Pain Skin: Denies: Rash, Wounds Neurological: Denies: Numbness, Tingling, Focal weakness Psychiatric: Reports: Anxiety, Depression. Denies: Homicidal Ideations, Suicidal Ideations Hematologic/ Lymphatic: Reports: Anemia. Denies: Easy Bruising, Easy Bleeding VTE Information - Inpt Only VTE Present on Admission: No VTE Mechan Device Prophylaxis: SCD's VTE Pharm Prophylaxis ordered?: No Reason prophylaxis not ordered:: Medical Contraindication - Holding for OR. Patient Problems: Active and Suspected Problems Closed left hip fracture (Acute) New onset a-fib (Acute) Subjective: Patient laying in the ED bed, severely uncomfortable, agonizing ongoing pain he notes. Objective: Physical Examination: General: awake, alert, oriented x 3 and cooperative, laying in the ED bed, severely uncomfortable appearing. Skin: normal color, turgor, no icterus, cyanosis, occasional abrasion to the extremities. HEENT: AT/NC, EOMI, PERRLA, dry MM, no carotid bruits or JVD noted. Lungs: Diminished breath sounds, greater bases, moderate effort, no rales, ronchi or wheezing. Heart: Irregular, rate controlled; no gallop, rub audible. Abdomen: soft, thin habitus, NTTP, no evidence of any ascites, ND, normal BS, positive HM. Extremities: no cyanosis, clubbing, status post mechanical fall with left hip fracture, rotated, peripheral pulses intact, sensation intact. Neurological: patient awake, alert, oriented x 3; cognitive function intact; pupils equally reactive to light and accomodation; cranial nerves II-XII grossly normal, moving all 4 extremities however deferred any aggressive left lower extremity movement given hip fracture, strength severely global decrease secondary to acute presentation. Psychiatric: affect appears severely uncomfortable, no acute evidence of depressive or anxiety feelings. - Physical Exam Vitals/I&O's: Vital Signs Temp Pulse Resp BP Pulse Ox 97.6 F L 69 20 H 125/82 H 97 11/11/19 16:39 11/11/19 16:39 11/11/19 16:39 11/11/19 17:51 11/11/19 16:39 Oxygen Delivery Method Room Air Weight: 154 lb 5.177 oz Body Mass Index (BMI) 22.8 Laboratory Results 11/11/19 17:10: WBC Pending, RBC Pending, Hgb Pending, Hct Pending, MCV Pending, MCH Pending, MCHC Pending, RDW Std Deviation Pending, RDW Coeff of Nannette Pending, Plt Count Pending, Neut % (Auto) Pending, Absolute Neuts (auto) Pending 11/11/19 17:10: PT Pending, INR Pending, APTT Pending 11/11/19 17:10: Sodium 140, Potassium 3.8, Chloride 106, Carbon Dioxide 26.0, Anion Gap 8, BUN 30 H, Creatinine 1.25, Estim Creat Clear Calc 56.00, Est GFR (MDRD) Af Amer 74, Est GFR (MDRD) Non-Af 61, BUN/Creatinine Ratio 24.0 H, Glucose 118 H, Calcium 8.6 Assessment/Plan All Active Problems Closed left hip fracture (Acute) New onset a-fib (Acute) The patient is a 69 y/o M w/ PMHx: Hepatitis C with Liver Cirrhosis following w/ Dr. Box, HTN, Chronic neuropathy, Former Tobacco use who presents to the [facility] ED on 11/11/19 with history of being pulled over by his dog, falling onto his left side with intractable pain and debility as well as malrotation prompting ED presentation. 1. General debility, L hip pain s/p mechanical fall w/ displaced and angulated subtrochanteric fracture of the left hip: Plain film noting acute displaced and angulated subtrochanteric fracture of the left hip, chest x-ray with chronic interstitial changes with no acute cardiopulmonary findings, EKG however with new onset atrial fibrillation and per discussion with patient possibly ongoing for at least 2 months. Orthopedic surgery consulted from ED. Will admit to MS, maintain NPO, continue gentle IVFs, obtain TSH, Mag level, ICa, UA, UCx, barbosa placement, monitor I/Os, frequent positioning, fall precautions, type and screen w/ plan for T+C 2 u for OR pending OR date. Pain, anti-emetic regimen. PT/OT following operative intervention. CM consulted for discharge planning. Per NSQIP acute PE given patient age group 65-74, male, severe systemic disease although no ascites within 30 days, hypertensive requiring medications, ongoing tobacco use patient with no elevated above expected average risk for serious complications therefore if cardiac evaluation including echocardiogram and telemetry monitoring as well as enzymes not concerning appearing would plan to progress to OR in the afternoon on 11/12/2019. This was also relayed to the orthopedic surgeon. 2. New onset, Paroxsymal atrial fibrillation: EKG in ED w/ atrial fibrillation, unclear timeline, new onset. Will maintain on telemetry, obtain cardiac enzyme serial set, obtain magnesium level, obtain ECHO, obtain TSH level. Given planned OR will defer any full anticoagulation. If cardiac work-up not marked will plan to progress to OR. 3. Macrocytic anemia, appears acute on chronic although only 1 comparison and recent: Admission hemoglobin 10.5, unclear prior baseline, MCV 106.9, will obtain vitamin B12, folic acid, iron panel. Last comparison 10/06/2019 with hemoglobin 12.7 at that time, given decrease will also obtain guaiac although patient currently denies any significant stool changes. 4. Chronic hepatitis C with Cirrhosis: Following with GI Dr. Box per records, from discussion suspect patient has been treated, will obtain hepatic profile, will continue metoprolol, spironolactone, lasix therapy. Coags normal. 5. Hypertension: Continue home regimen including Lasix, lisinopril, metoprolol, spironolactone with hold parameters, PRN hydralazine. 6. Anxiety and depression: We will continue home duloxetine regimen. 7. Chronic neuropathy: We will continue patient home gabapentin regimen with hold parameters given sedation. 8. BPH: We will continue patient home Flomax regimen. 9. DVT Prophylaxis: SCDs, hold prophylaxis given planned operative intervention and again evaluation of anemia. 10. CODE status: Patient does not have healthcare part of attorney general nor living will. Given presentation discussed CODE status at length including difference between FULL code, DNR-CCA and DNR-CC status. Following discussions about the differences in these status, requested Full Code status. Advanced Care Planning Face to Face Time: 16 minutes. Inpatient E&M: 41408 Init Hosp L3 Procedures: 23267 Advncd Care Plan 30 Min
[2019-11-11 18:02] LABS: Absolute Lymphocyte Count 0.35 X10^3/uL (0.83-4.51); Absolute Neutrophil Count 5.9 X10^3/uL (2.0-7.7); Basophil# 0.03 X10^3/uL; Basophil% 0.4 % (0-1); Eosinophil# 0.13 X10^3/uL; Eosinophils% 1.9 % (0-5); Hemoglobin 10.5 g/dL (13.0-16.5); Lymphocyte # 0.35 X10^3/ul (4.0); Mean Corp Hgb Conc 33.9 g/dL (32-36); Mean Corpuscular Hgb 36.2 pg (27.0-32.0); Mean Corpuscular Volume 106.9 fL (80-94); Mean Platelet Vol. 11.9 fl (6.2-12.0); Monocyte# 0.47 X10^3/uL; Monocyte% 6.7 % (0-10); NRBC Flagged by Analyzer 0 % (0-5); Neutrophil # 5.94 X10^3/uL (2.7-7.7); Neutrophil % 85.3 % (47-70); POSITIVE DIFFERENTIAL YES; Platelet Count 304 K/mm3 (150-450); RBC Distribution Width CV 16.2 % (11.6-14.6); RBC Distribution Width SD 63.7 fl (35.1-43.9)
[2019-11-11 18:05] LABS: Differential Indicated SCAN CRITERIA MET
[2019-11-11 18:29] LABS: International Normalized Ratio 1.2; Prothrombin Time (Protime)PT. 14.7 SECONDS (11.7-14.9)
[2019-11-11 18:30] LABS: Partial Thromboplast Time 28.7 Seconds (24.1-36.2)
--- NOTE | 2019-11-11 18:36 | EKG12_ITS ---
Test Reason : MORNING EKG Blood Pressure : / mmHG Vent. Rate : 088 BPM Atrial Rate : 096 BPM P-R Int : 000 ms QRS Dur : 092 ms QT Int : 390 ms P-R-T Axes : 000 051 035 degrees QTc Int : 471 ms Atrial fibrillation Abnormal ECG When compared with ECG of 09-OCT-2011 15:06, Atrial fibrillation has replaced Sinus rhythm Confirmed by MIRIAM ALONSO, VICK ([id number]), videotape editor PRISCA ZARAGOZA ([id number]) on 11/16/2019 1:49:01 PM Referred By: RUKHSANA Confirmed By:CARON PINEDA MD
[2019-11-11 18:43] LABS: Acanthocytes 2+; Anisocytosis 2+; Ovalocyte 2+; Platelet Estimate ADEQUATE (ADEQ); Red Cell Morphology N CHROM NORMAL (NORM C&C); Schistocytes 1+
--- NOTE | 2019-11-11 18:49 | ECHOD_ITS ---
Reason For Study: Arrhythmia Procedure This was a 2D Doppler, Color Flow transthoracic echocardiogram. The study was technically difficult. Patient scanned supine due to left hip fracture. Exam performed portable in patient room. Left Ventricle Normal LV size. The estimated ejection fraction is 70 %. Unable to assess diastolic dysfunction. No regional wall motion abnormalities noted. Right Ventricle Normal RV size. Normal systolic function. Atria The left atrium is moderately enlarged. The right atrium is mildly enlarged. No doppler evidence for ASD. Mitral Valve There is no mitral valve stenosis. Trivial mitral valve insufficiency. Tricuspid Valve There is no tricuspid stenosis. Pulmonary artery systolic pressure is 35-40 mmHg. Trivial tricuspid valve insufficiency. Aortic Valve Trisinus/trileaflet aortic valve. Moderate diffuse aortic valve thickening. Mild aortic stenosis. No aortic valve insufficiency. Pulmonic Valve There is no pulmonic valvular stenosis. No pulmonic valve insufficiency. Great Vessels Normal aortic root. Pericardium/Pleural No pericardial effusion. MMode/2D Measurements & Calculations LVIDd: 4.0 cm IVSd: 0.89 cm LVOT diam: 2.2 cm LVIDs: 2.2 cm LVPWd: 0.86 cm LVOT area: 3.8 cm2 RVDd: 3.3 cm FS: 45.0 % Ao root diam: 4.7 cm LAV(MOD-bp): 56.8 ml LA A4 area: 23.2 cm2 LAV(MOD-bp) Indexed: 31.4 ml/m2 LAV(MOD-sp2): 42.4 ml LAV(MOD-sp4): 68.4 ml LA dimension(2D): 3.7 cm RA A4 area: 19.5 cm2 Doppler Measurements & Calculations MV E max andres: 99.4 cm/sec Ao V2 max: 213.4 cm/sec LV V1 max: 124.3 cm/sec Ao max P.3 mmHg LV V1 max P.2 mmHg Ao V2 mean: 144.8 cm/sec LV V1 mean P.3 mmHg Ao mean P.4 mmHg LV V1 mean: 85.2 cm/sec Ao V2 VTI: 37.8 cm LV V1 VTI: 22.9 cm DUNCAN(I,D): 2.3 cm2 DUNCAN(V,D): 2.2 cm2 SV(LVOT): 86.3 ml PA V2 max: 129.8 cm/sec TR max andres: 268.1 cm/sec TR max P.8 mmHg Interpretation Summary The estimated ejection fraction is 70 %. Unable to assess diastolic dysfunction. The left atrium is moderately enlarged. Trivial mitral valve insufficiency. Mild aortic stenosis. Ordering Physician: Holly Quick Referring Physician: MD Mikaela Derrick Performed By: Sri Ortiz RDCS
[2019-11-11] MEDS: 0.9% Normal Saline 1,000 ML 100 ML IV (19:09)
[2019-11-11] MEDS: Morphine 2 MG/ML Syringe IV ×2 (19:20→23:47)
[2019-11-11] MEDS: 0.9% Saline Lock 10 ML Syringe IV ×2 (19:21→23:47)
[2019-11-11 19:37] LABS: Vitamin B12 804 pg/mL (211-911)
[2019-11-11 19:42] LABS: Magnesium 1.7 mg/dL (1.6-2.6)
[2019-11-11 19:47] LABS: Ferritin 435 ng/mL (26-388); Iron 87 ug/dL (65-175); Iron Binding Capacity,Total 204 ug/dL (250-450); PERCENT IRON SATURATION 42.6 % (15.0-55.0); T4 Free Direct 1.13 ng/dL (0.76-1.46)
[2019-11-11] MEDS: Gabapentin 600 MG Tablet PO (21:01)
[2019-11-11] MEDS: Tamsulosin HCl 0.4 MG Capsule PO (21:01)
[2019-11-11] MEDS: oxyCODONE 5 MG Tablet PO (21:01)
[2019-11-12] VITALS (30 sets, daily range): BP systolic 41–119; BP diastolic 36–87; PULSE 84–136; RESP 14–31; TEMP 35.7–37.3; O2SAT 97–100; BMI 21.6
[2019-11-12] MEDS: 0.9% Normal Saline 1,000 ML 100 ML IV (05:05)
--- NOTE | 2019-11-12 05:55 | EKG12_ITS ---
Test Reason : PRE OP Blood Pressure : / mmHG Vent. Rate : 080 BPM Atrial Rate : 052 BPM P-R Int : 000 ms QRS Dur : 080 ms QT Int : 404 ms P-R-T Axes : 000 073 066 degrees QTc Int : 465 ms Atrial fibrillation with premature ventricular or aberrantly conducted complexes Abnormal ECG Confirmed by MIRIAM ALONSO, VICK ([id number]), story editor PRISCA ZARAGOZA ([id number]) on 11/13/2019 11:28:25 A M Referred By: CARYN Confirmed By:CARON PINEDA MD
[2019-11-12 06:01] LABS: Specimen Processing Control PASS
[2019-11-12 06:02] LABS: Probe Check PASS
[2019-11-12 06:31] LABS: Absolute Lymphocyte Count 0.65 X10^3/uL (0.83-4.51); Absolute Neutrophil Count 6.4 X10^3/uL (2.0-7.7); Basophil# 0.02 X10^3/uL; Basophil% 0.3 % (0-1); Eosinophil# 0.03 X10^3/uL; Eosinophils% 0.4 % (0-5); Hematocrit 25.2 % (40-54); Hemoglobin 8.3 g/dL (13.0-16.5); Lymphocyte # 0.65 X10^3/ul (4.0); Lymphocyte % 8.3 % (19-41); Mean Corp Hgb Conc 32.9 g/dL (32-36); Mean Corpuscular Hgb 35.2 pg (27.0-32.0); Mean Corpuscular Volume 106.8 fL (80-94); Mean Platelet Vol. 11.8 fl (6.2-12.0); Monocyte# 0.69 X10^3/uL; Monocyte% 8.8 % (0-10); NRBC Flagged by Analyzer 0 % (0-5); Neutrophil # 6.39 X10^3/uL (2.7-7.7); Neutrophil % 81.8 % (47-70); Platelet Count 246 K/mm3 (150-450); RBC Distribution Width CV 16.2 % (11.6-14.6); Red Blood Count 2.36 M/mm3 (4.6-6.2); White Blood Count 7.8 K/mm3 (4.4-11.0)
[2019-11-12 07:00] LABS: ALB/GLOB Ratio 0.6 RATIO (0.9-2.4); AST(SGOT) 100 U/L (15-37); Alanine Aminotransfer ALT/SGPT 84 U/L (16-61); Alkaline Phosphatase 97 U/L (45-117); Anion Gap 6 (5-15); BUN 36 mg/dL (7-18); BUN/Creat Ratio 30.3 RATIO (10-20); Calcium,Total 7.8 mg/dL (8.5-10.1); Chloride 107 mmol/L (98-107); Cholesterol 234 mg/dL (200); Creatinine, Serum 1.19 mg/dL (0.70-1.30); EST Glomerular Filtration Rate 65 mL/min (>60); Est Glom Filt Rate - Afr Amer 78 mL/min (>60); Estimated Creatinine Clearance 55.88 ml/min; Globulin 3.2 g/dL (2.2-4.2); Glucose 118 mg/dL (74-106); High Density Lipoprotein 18 mg/dL; Potassium 4.2 mmol/L (3.5-5.1); Protein, Total 5.2 g/dL (6.4-8.2); Sodium Level 139 mmol/L (136-145); Triglycerides 100 mg/dL; Very Low Density Lipoprotein 20 mg/dL (5-40)
[2019-11-12 07:03] LABS: Phosphorus 4.7 mg/dL (2.5-4.9)
--- NOTE | 2019-11-12 11:22 | CASEMGMT ---
Assessment- SW completed assessment at bedside with patient. SW also confirmed his address and phone number as well as his son's phone number. Living situation- Patient lives alone in a 1 story home with a few entry steps PCP: Dr Al Specialists: Dr Box Pharmacy: [facility] DME: marcio ADL's/IADL's: Patient states he is normally independent. The only thing he does not do is drive himself. His son drives him where he needs to go. He manages his own meds, bathes himself, cooks, cleans, and pays bills on his own. He does not use any assistive devices to get around. Past SNF/rehab: None Past HH: None LW: None and is not interested POA: None and is not interested Plan: Patient is not sure about a discharge plan yet. SW explained that generally speaking patient's with hip fractures go to a retirement at discharge for short term rehab. His son lives next door and can assist as needed. SW explained that we will continue to follow and assist with d/c planning as appropriate. 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
--- NOTE | 2019-11-12 12:12 | PCM.PROGNOTE ---
<Perla Dior - Last Filed: 11/12/19 12:22> Patient Problems: Active and Suspected Problems Closed left hip fracture (Acute) New onset a-fib (Acute) Subjective: Patient seen and examined. Left hip pain controlled with PRN pain regimen. Denies chest pain, shortness of breath, palpitations. Plan for OR this afternoon. - Physical Exam Vitals/I&O's: Vital Signs Temp Pulse Resp BP Pulse Ox 99.1 F 87 16 96/63 99 11/12/19 11:45 11/12/19 11:45 11/12/19 11:45 11/12/19 11:45 11/12/19 11:45 Oxygen Flow Rate (L/min) 2 Oxygen Delivery Method Nasal Cannula Weight: 146 lb 9.718 oz Body Mass Index (BMI) 21.6 Intake and Output for Last 24 Hours 11/10/19 11/11/19 11/12/19 23:59 23:59 23:59 Intake Total 1000 / 1050 1691.67 / 1691.67 Output Total 575 / 575 Balance 1000 / 925 1116.67 / 1116.67 General: Alert, Oriented x3, Cooperative HEENT: Atraumatic, PERRLA, EOMI, Normocephalic Neck: Supple, No JVD, Negative Carotid Bruits Lungs: Clear to auscultation, Normal air movement Cardiovascular: - - Atrial fibrillation, rate controlled Abdomen: Bowel Sounds Present, Soft, Non Tender, Non-Distended Extremities: No clubbing, No cyanosis, No edema, Capillary Refill Less than 3 Seconds Skin: No rashes, No breakdown Musculoskeletal: No Tenderness to Palpation of Joints or Extremities, Tenderness - Left hip Neurological: Cranial nerves II-XII grossly intact, Neuro grossly intact Psych/Mental Status: Normal Affect, Appropriate Laboratory Results 11/11/19 17:05: Crossmatch See Detail 11/11/19 17:10: WBC 7.0, RBC 2.90 L, Hgb 10.5 L, Hct 31.0 L, MCV 106.9 H, MCH 36.2 H, MCHC 33.9, RDW Std Deviation 63.7 H, RDW Coeff of Nannette 16.2 H, Plt Count 304, MPV 11.9, Immature Gran % (Auto) 0.700, Neut % (Auto) 85.3 H, Lymph % (Auto) 5.0 L, Ramsey % (Auto) 6.7, Eos % (Auto) 1.9, Baso % (Auto) 0.4, Absolute Neuts (auto) 5.9, Absolute Lymphs (auto) 0.35 L, Nucleated RBC % 0, Differential Comment , Diff Path Review May foll, Platelet Estimate ADEQUATE, RBC Morphology N CHROM, Anisocytosis 2+, Ovalocytes 2+, Acanthocytes (Spur) 2+, Schistocytes 1+ 11/11/19 17:10: PT 14.7, INR 1.2, APTT 28.7 11/11/19 17:10: Sodium 140, Potassium 3.8, Chloride 106, Carbon Dioxide 26.0, Anion Gap 8, BUN 30 H, Creatinine 1.25, Estim Creat Clear Calc 56.00, Est GFR (MDRD) Af Amer 74, Est GFR (MDRD) Non-Af 61, BUN/Creatinine Ratio 24.0 H, Glucose 118 H, Calcium 8.6 11/11/19 17:10: Iron 87, TIBC 204 L, Iron Saturation 42.6, Ferritin 435 H, Folate 6.60, TSH 20.20 H, Free T4 1.13 11/11/19 17:10: Magnesium 1.7, Troponin I < 0.015 11/11/19 17:10: Vitamin B12 804 11/11/19 17:10: Blood Type A POSITIVE, Antibody Screen NEGATIVE 11/11/19 20:35: Troponin I < 0.015 11/12/19 00:35: Troponin I < 0.015 11/12/19 03:40: COVID-19 (LARRY) Not Detected 11/12/19 05:35: WBC 7.8, RBC 2.36 L, Hgb 8.3 L, Hct 25.2 L, MCV 106.8 H, MCH 35.2 H, MCHC 32.9, RDW Std Deviation 63.0 H, RDW Coeff of Nannette 16.2 H, Plt Count 246, MPV 11.8, Immature Gran % (Auto) 0.400, Neut % (Auto) 81.8 H, Lymph % (Auto) 8.3 L, Ramsey % (Auto) 8.8, Eos % (Auto) 0.4, Baso % (Auto) 0.3, Absolute Neuts (auto) 6.4, Absolute Lymphs (auto) 0.65 L, Nucleated RBC % 0 11/12/19 05:35: Sodium 139, Potassium 4.2, Chloride 107, Carbon Dioxide 26.0, Anion Gap 6, BUN 36 H, Creatinine 1.19, Estim Creat Clear Calc 55.88, Est GFR (MDRD) Af Amer 78, Est GFR (MDRD) Non-Af 65, BUN/Creatinine Ratio 30.3 H, Glucose 118 H, Calcium 7.8 L, Total Bilirubin 1.60 H, AST 100 H, ALT 84 H, Alkaline Phosphatase 97, Total Protein 5.2 L, Albumin 2.0 L, Globulin 3.2, Albumin/Globulin Ratio 0.6 L, Triglycerides 100, Cholesterol 234 H, LDL Cholesterol 196 H, VLDL Cholesterol 20, HDL Cholesterol 18 L 11/12/19 05:35: Phosphorus 4.7 Current Medications Acetaminophen (Tylenol) 650 mg PO Q6H PRN PRN PRN Reason: Pain Score 1-10 /Temp>100.7 Albuterol Sulfate (Ventolin Aerosols) 2.5 mg INHALATION Q2H PRN PRN PRN Reason: Dyspnea, wheezing Duloxetine HCl (Cymbalta) 60 mg PO QHS [facility] Furosemide (Lasix) 40 mg PO QODAY@2200 [facility] Gabapentin (Neurontin) 600 mg PO 4X/DAY [facility] Last Admin: 11/12/19 09:58 Dose: Not Given Documented by: Hydralazine HCl (Apresoline Iv) 10 mg IV Q4H PRN PRN PRN Reason: SBP > 160 Sodium Chloride () 1,000 mls @ 100 mls/hr IV .Q10H [facility] Last Infusion: 11/12/19 11:30 Dose: 0 mls/hr Documented by: Lisinopril (Zestril) 5 mg PO DAILY [facility] Last Admin: 11/12/19 10:37 Dose: Not Given Documented by: Metoprolol Succinate (Toprol Xl (Beta Anand)) 100 mg PO QHS [facility] Morphine Sulfate () 2 - 4 mg IV Q3H PRN PRN PRN Reason: Pain Score 6-10/10 Last Admin: 11/11/19 23:47 Dose: 4 mg Documented by: Morphine Sulfate () 1 mg IV Q4H PRN PRN PRN Reason: Pain Score 4-5/10 Oxycodone HCl (Oxyir) 5 mg PO Q4H PRN PRN PRN Reason: Pain Score 4-5/10 Last Admin: 11/11/19 21:01 Dose: 5 mg Documented by: Sodium Chloride () 10 - 40 ml IV UD PRN PRN Reason: SALINE FLUSH Last Admin: 11/11/19 23:47 Dose: 10 ml Documented by: Spironolactone (Aldactone) 100 mg PO QHS [facility] Tamsulosin HCl (Flomax) 0.4 mg PO QHS [facility] Last Admin: 11/11/19 21:01 Dose: 0.4 mg Documented by: Medical Necessity - Tobacco Use Smoking Status: Current every day smoker Tobacco Use: Cigars Assessment/Plan All Active Problems Closed left hip fracture (Acute) New onset a-fib (Acute) 1. Acute traumatic left hip fracture secondary to mechanical fall prior to admission-plan for OR this afternoon. NSQIP as noted in H&P. Plan for OR this afternoon pending echocardiogram. PT/OT. PRN pain regimen. Management per Ortho. 2. New diagnosis atrial fibrillation-rate controlled. Continue home metoprolol regimen. Echocardiogram pending. Will assess need for anticoagulation following surgery. Troponin negative. EKG without ST-T changes. 3. Elevated TSH-suspect reactive. Free T4 normal. 4. Acute on chronic macrocytic anemia-2 units PRBC ordered given plan for OR. Do not have significant prior labs for comparison however hemoglobin 10/06/2019 12.7. Hemoglobin this morning 8.3. Stool for occult blood ordered. No evidence of active bleeding. 5. Chronic hepatitis C with cirrhosis-following with JOSEFINA Fonseca. Continue metoprolol, spironolactone, Lasix. 6. Hypertension-stable, continue current regimen. 7. Anxiety/depression-continue duloxetine. 8. Chronic neuropathy-on gabapentin. 9. BPH-continue Flomax. DVT prophylaxis-SCDs This patient was seen by JOSE Presley under the supervision of Dr. Christianson. <Marisela Christianson - Last Filed: 11/12/19 16:38> Subjective: Pt only c/o L hip pain. States that he sees his PCP every 6 mos. Never been told before that he had PAF. Feels ok and has been feeling well otherwise. - Physical Exam Vitals/I&O's: Vital Signs Temp Pulse Resp BP Pulse Ox 98.5 F 100 16 110/70 98 11/12/19 13:39 11/12/19 13:39 11/12/19 13:39 11/12/19 13:39 11/12/19 13:39 Oxygen Flow Rate (L/min) 2 Oxygen Delivery Method Nasal Cannula Weight: 66.5 kg Body Mass Index (BMI) 21.6 Intake and Output for Last 24 Hours 11/10/19 11/11/19 11/12/19 23:59 23:59 23:59 Intake Total 1000 / 1050 1691.67 / 1691.67 Output Total 575 / 575 Balance 1000 / 925 1116.67 / 1116.67 General: Alert, Oriented x3, Cooperative, No apparent distress, Well developed, Well nourished, - - Thin, WM who appears older than stated age, lying in bed HEENT: Atraumatic, PERRLA, EOMI, Normocephalic, EAC Clear Oral: Moist Mucosa, No Gingival or Mucosal Lesions/ Ulcerations, - - poor dentition Neck: Supple, No JVD, Negative Carotid Bruits, No Nodes, No Nuchal Rigidity, Trachea Midline, Thyroid Normal Size and Texture Lungs: Clear to auscultation, No rhonchi, No wheeze, No rales, Diminished - diffusely Cardiovascular: Regular rate, Normal S1, Normal S2, No murmurs, No Ectopic Activity, No rub noted, No Gallop, - - Atrial fibrillation, rate controlled, irreg rhythm Abdomen: Bowel Sounds Present, Soft, Non Tender, Non-Distended, No hernias noted Extremities: No clubbing, No cyanosis, No edema, Capillary Refill Less than 3 Seconds, Peripheral Pulses Normal Skin: No rashes, No breakdown Musculoskeletal: No Muscle Wasting, Arthritic Changes, Tenderness - Left hip, decreased lean mm mass, - - L hip is shortened and ER Lymphatic: No Cervical, Supraclavicular, or Inguinal Adenopathy Neurological: Cranial nerves II-XII grossly intact, Neuro grossly intact, Muscle tone normal, Coordination normal Psych/Mental Status: Normal Affect, Appropriate, Alert and oriented to time, place, person, mood and affect Laboratory Results 11/11/19 17:05: Crossmatch See Detail 11/11/19 17:10: WBC 7.0, RBC 2.90 L, Hgb 10.5 L, Hct 31.0 L, MCV 106.9 H, MCH 36.2 H, MCHC 33.9, RDW Std Deviation 63.7 H, RDW Coeff of Nannette 16.2 H, Plt Count 304, MPV 11.9, Immature Gran % (Auto) 0.700, Neut % (Auto) 85.3 H, Lymph % (Auto) 5.0 L, Ramsey % (Auto) 6.7, Eos % (Auto) 1.9, Baso % (Auto) 0.4, Absolute Neuts (auto) 5.9, Absolute Lymphs (auto) 0.35 L, Nucleated RBC % 0, Differential Comment , Diff Path Review Reviewed, Platelet Estimate ADEQUATE, RBC Morphology N CHROM, Anisocytosis 2+, Ovalocytes 2+, Acanthocytes (Spur) 2+, Schistocytes 1+ 11/11/19 17:10: PT 14.7, INR 1.2, APTT 28.7 11/11/19 17:10: Sodium 140, Potassium 3.8, Chloride 106, Carbon Dioxide 26.0, Anion Gap 8, BUN 30 H, Creatinine 1.25, Estim Creat Clear Calc 56.00, Est GFR (MDRD) Af Amer 74, Est GFR (MDRD) Non-Af 61, BUN/Creatinine Ratio 24.0 H, Glucose 118 H, Calcium 8.6 11/11/19 17:10: Iron 87, TIBC 204 L, Iron Saturation 42.6, Ferritin 435 H, Folate 6.60, TSH 20.20 H, Free T4 1.13 11/11/19 17:10: Magnesium 1.7, Troponin I < 0.015 11/11/19 17:10: Vitamin B12 804 11/11/19 17:10: Blood Type A POSITIVE, Antibody Screen NEGATIVE 11/11/19 20:35: Troponin I < 0.015 11/12/19 00:35: Troponin I < 0.015 11/12/19 03:40: COVID-19 ([facility]ARRY) Negative 11/12/19 05:35: WBC 7.8, RBC 2.36 L, Hgb 8.3 L, Hct 25.2 L, MCV 106.8 H, MCH 35.2 H, MCHC 32.9, RDW Std Deviation 63.0 H, RDW Coeff of Nannette 16.2 H, Plt Count 246, MPV 11.8, Immature Gran % (Auto) 0.400, Neut % (Auto) 81.8 H, Lymph % (Auto) 8.3 L, Ramsey % (Auto) 8.8, Eos % (Auto) 0.4, Baso % (Auto) 0.3, Absolute Neuts (auto) 6.4, Absolute Lymphs (auto) 0.65 L, Nucleated RBC % 0 11/12/19 05:35: Sodium 139, Potassium 4.2, Chloride 107, Carbon Dioxide 26.0, Anion Gap 6, BUN 36 H, Creatinine 1.19, Estim Creat Clear Calc 55.88, Est GFR (MDRD) Af Amer 78, Est GFR (MDRD) Non-Af 65, BUN/Creatinine Ratio 30.3 H, Glucose 118 H, Calcium 7.8 L, Total Bilirubin 1.60 H, AST 100 H, ALT 84 H, Alkaline Phosphatase 97, Total Protein 5.2 L, Albumin 2.0 L, Globulin 3.2, Albumin/Globulin Ratio 0.6 L, Triglycerides 100, Cholesterol 234 H, LDL Cholesterol 196 H, VLDL Cholesterol 20, HDL Cholesterol 18 L 11/12/19 05:35: Phosphorus 4.7 Current Medications Acetaminophen (Tylenol) 650 mg PO Q6H PRN PRN PRN Reason: Pain Score 1-10 /Temp>100.7 Albuterol Sulfate (Ventolin Aerosols) 2.5 mg INHALATION Q2H PRN PRN PRN Reason: Dyspnea, wheezing Duloxetine HCl (Cymbalta) 60 mg PO QHS [facility] Furosemide (Lasix) 40 mg PO QODAY@2200 [facility] Gabapentin (Neurontin) 600 mg PO 4X/DAY [facility] Last Admin: 11/12/19 14:50 Dose: Not Given Documented by: Hydralazine HCl (Apresoline Iv) 10 mg IV Q4H PRN PRN PRN Reason: SBP > 160 Sodium Chloride () 1,000 mls @ 100 mls/hr IV .Q10H [facility] Last Infusion: 11/12/19 13:47 Dose: 100 mls/hr Documented by: Cefazolin Sodium () 1 gm in 50 mls @ 150 mls/hr IV Q8 [facility] Stop: 11/13/19 06:19 Lisinopril (Zestril) 5 mg PO DAILY [facility] Last Admin: 11/12/19 10:37 Dose: Not Given Documented by: Metoprolol Succinate (Toprol Xl (Beta Anand)) 100 mg PO QHS [facility] Morphine Sulfate () 2 - 4 mg IV Q3H PRN PRN PRN Reason: Pain Score 6-10/10 Last Admin: 11/12/19 13:44 Dose: 2 mg Documented by: Morphine Sulfate () 1 mg IV Q4H PRN PRN PRN Reason: Pain Score 4-5/10 Ondansetron HCl (Zofran) 4 mg IV Q8H PRN PRN PRN Reason: Nausea Oxycodone HCl (Oxyir) 5 mg PO Q4H PRN PRN PRN Reason: Pain Score 4-5/10 Last Admin: 11/11/19 21:01 Dose: 5 mg Documented by: Sodium Chloride () 10 - 40 ml IV UD PRN PRN Reason: SALINE FLUSH Last Admin: 11/11/19 23:47 Dose: 10 ml Documented by: Spironolactone (Aldactone) 100 mg PO QHS [facility] Tamsulosin HCl (Flomax) 0.4 mg PO QHS [facility] Last Admin: 11/11/19 21:01 Dose: 0.4 mg Documented by: Assessment/Plan I agree with the above and the following is a reflection of my independent history and physical exam ASSESSMENT Acute L Subtrochanteric Hip fracture New Dx A-Fib TSH elevation Acute on Chronic Macrocytic Anemia Chronic Hep C with Cirrhosis ([facility]) HTN Neuropathy H/O Tobacco Abuse COPD JEFFREY Hyperlipidemia PLAN -NSQIP as noted in H&P -ECHO is pending and if abn will consult cardiology prior to OR -Rate is controlled for A-fib -suspect pt has had this and been asymptomatic -pt was transfused by anesthesia for hgb 8.3 prior to OR to optimize O2 carrying capacity -continue Metoprolol -start OAC when ok per Ortho -will likely need rehab at d/c -continue home meds for BP as ordered but hold ACEI -start statin for lipids -decrease IVF to 50cc/hr after OR and if able to eat and drink will d/completely -with TSH would have pt f/u in 4 weeks with PCP and repeat TSH and Free T4 -suspect possible subclinical hypothyroidism with TSH at 20 but wouldn't treat now with high nml FT4
--- NOTE | 2019-11-12 12:59 | PCM.NTREPORT ---
Nutrition Therapy Report - History Nutrition Services has been consulted to:: Manage nutrient details of diet order Current diet / nutrition support order:: NPO for procedure. - Anthropometric Measurements Height:: 5 ft 9 in Weight:: 66.5 kg Body Mass Index (BMI):: 21.6 - Relevant Labs Relevant Labs:: RBC 2.36 M/mm3 (4.6-6.2) L 11/12/19 05:35 Hgb 8.3 g/dL (13.0-16.5) L 11/12/19 05:35 Hct 25.2 % (40-54) L 11/12/19 05:35 MCV 106.8 fL (80-94) H 11/12/19 05:35 MCH 35.2 pg (27.0-32.0) H 11/12/19 05:35 RDW Std Deviation 63.0 fl (35.1-43.9) H 11/12/19 05:35 RDW Coeff of Nannette 16.2 % (11.6-14.6) H 11/12/19 05:35 Neut % (Auto) 81.8 % (47-70) H 11/12/19 05:35 Lymph % (Auto) 8.3 % (19-41) L 11/12/19 05:35 Absolute Lymphs (auto) 0.65 X10^3/uL (0.83-4.51) L 11/12/19 05:35 BUN 36 mg/dL (7-18) H 11/12/19 05:35 BUN/Creatinine Ratio 30.3 RATIO (10-20) H 11/12/19 05:35 Glucose 118 mg/dL (74-106) H 11/12/19 05:35 Calcium 7.8 mg/dL (8.5-10.1) L 11/12/19 05:35 TIBC 204 ug/dL (250-450) L 11/11/19 17:10 Ferritin 435 ng/mL (26-388) H 11/11/19 17:10 Total Bilirubin 1.60 mg/dL (0.20-1.00) H 11/12/19 05:35 AST 100 U/L (15-37) H 11/12/19 05:35 ALT 84 U/L (16-61) H 11/12/19 05:35 Total Protein 5.2 g/dL (6.4-8.2) L 11/12/19 05:35 Albumin 2.0 g/dL (3.2-5.0) L 11/12/19 05:35 Albumin/Globulin Ratio 0.6 RATIO (0.9-2.4) L 11/12/19 05:35 Cholesterol 234 mg/dL (200) H 11/12/19 05:35 LDL Cholesterol 196 mg/dL (0-130) H 11/12/19 05:35 HDL Cholesterol 18 mg/dL (40-) L 11/12/19 05:35 TSH 20.20 uIU/mL (0.358-3.74) H 11/11/19 17:10 - Assessment Food / Nutrition-Related History:: Pt reports appetite/intake not so good lately because I was put on a new medication that has made me feel sick; started new med 4-5 days ago per pt, intitial day experienced nausea w/ episode of vomiting, continues to experience nausea no further bouts vomiting noted. 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 States prior to intitiation of new med normal appetite, typically consuming 2 meals per day. Notes unintentional wt loss of ~25# over the past 2 months w/ UBW 170#. CBW 146.6#-- wt loss 23.4#/13.8% x 2 months (severe). +NFPE: severe temporal scooping/depression, severe orbital bone hollow look/depression, severe clavicle bone protrusion, moderate interosseous muscle depression. Notes clothes have been fitting looser and feeling weaker. Reports experiencing ongoing diarrhea x 1 year, PCP aware and sent pt to see specialist pt notes something was found wrong w/ my liver but they cannot operate because I have anemia so they were going to place a stent but all that has been on hold now. Pt w/ hx Hepatitis C, liver cirrhosis. - Nutrition Diagnosis Problem / Etiology / Signs & Symptoms (PES):: Severe malnutrition in the context of acute illness/injury related to altered GI function and predicted suboptimal energy intake as evidenced by severe wt loss 23.4#/13.8% x 2 months, severe loss of subcutaneous fat and muscle. Evidence of Malnutrition Exists:: Yes Severe PCM:: Acute Illness - Nutrition Intervention Nutrition Prescription:: Estimated nutrition needs: [id number] calories, 65-75 gram protein. - Food / Nutrient Delivery Interventions Summary of nutrition intervention:: Pt reports unintentional wt loss of ~25# over the past 2 months w/ UBW 170#. CBW 146.6#-- wt loss 23.4#/13.8% x 2 months (severe). +NFPE: severe temporal scooping/depression, severe orbital bone hollow look/depression, severe clavicle bone protrusion, moderate interosseous muscle depression. Pt notes feeling weaker and clothes have been fitting looser. Suspect pt not adequately meeting estimated energy needs based on pt reported typical PO intake. Pt reports ongoing diarrhea x 1 year. Pt following w/ GI doctor for tx of chronic hepatitis C w/ cirrhosis per H+P. Nutrition support ordered as / adjusted to:: Rec PATRICK Regular as pt medically able. Once pt progressed to diet order will provide ONS ensure enlive 120 ml 4x/day at [facility] and provide ensure pudding/magic cup w/ meals to provide additional vi/pro if consumed. Nutrition education provided?: No - MNT Monitoring Further MNT monitoring and evaluation required?: Yes MNT Follow-up in:: 3-5 days - Please call RDN as needed- ext [phone]
[2019-11-12] MEDS: Morphine 2 MG/ML Syringe IV (13:44)
[2019-11-12 13:50] LABS: Pathologist Review Reviewed
--- NOTE | 2019-11-12 14:41 | CHAPLAIN ---
Type of Pastoral Visit _x__ Initial Visit ___ Follow-up Visit ___ On-call Visit ___ General Patient Visit ___ Spiritual Assessment ___ Family Conference ___ Bereavement ___ Rapid Response ___ Code Blue ___ Other (describe below) Pastoral Care Referral From _x__ Patient ___ Family ___ Nurse ___ Physician ___ Sourcing Intern ___ Counselor Manager ___ Other (describe below) Sacrament/Intervention _x__ Active listening ___ Anointing ___ Yazdanism ___ Bereavement ___ Communion ___ Yvette exploration ___ _x__ Life review _x__ Prayer ___ Reconciliation ___ Sacrament of Sick _x__ Supportive presence ___ Wedding ___ Other (describe below) Pastoral Comments pre op conversation about his fall and his disappointment at event; pt welcomes presence and prayer
--- NOTE | 2019-11-12 15:41 | CON.PCM_ITS ---
Reason for Consult Date of Consultation: 11/12/19 Reason for Consultation: left hip pain History of Present Illness: The patient is a 69 year old M who fell from standing height onto left hip when his dog pulled him. Denies antecedent dizziness, sob, chest pain or other issues denies antecedent left hip pain. states has has back issues in the past and seen his pcp for this. pt has chronic comorbidites as in chart. usual wbat without assistance. on admission noted to have afib so workup of echo done this am. transfused one unit today as well. per nurse, . 1 extra unit available postop as well. Denies numbness, tingling or other associated symptoms. see chart for fur ther details. [] Past Medical History Past Medical History (Chronic Problems): Chronic Problems Hepatitis C (Chronic) Liver cirrhosis (Chronic) HTN (hypertension) (Chronic) Tobacco use (Chronic) Anxiety and depression (Chronic) Anemia (Chronic) Allergies No Known Allergies Allergy (Verified 04/15/18 13:16) Home Medications: Ambulatory Orders Medication Instructions Recorded Lisinopril 5 mg PO DAILY 04/15/18 Duloxetine HCl 60 mg PO DAILY 11/11/19 Furosemide [Lasix] 40 mg PO DAILY 11/11/19 Gabapentin 600 mg PO 4X/DAY 11/11/19 Metoprolol Succinate [Toprol Xl] 100 mg PO DAILY 11/11/19 Spironolactone [Aldactone] 50 - 100 mg PO DAILY 11/11/19 Tamsulosin HCl 0.4 mg PO QHS 11/11/19 Surgical History: - - Patient denies any prior surgical history. Psychiatric History: Anxiety, Depression Lives: Alone Smoking Status: Current every day smoker Tobacco Use: Cigars Alcohol: None Drugs: - - Patient notes distant history of IV drug abuse, clean for many years. - *Family History Maternal History Items: Heart Disease Paternal History Items: Heart Disease Review of Systems Constitutional: Denies: Chills, Fever, Weight Change HEENT: Denies: Head Aches, Sinus Congestion, Sinus Drainage Cardiovascular: Denies: Chest Pain, Palpitations Respiratory: Denies: Cough, Shortness of breath at rest, Sputum production Gastrointestinal: Denies: Abdominal Pain, Nausea, Vomiting Genitourinary: Denies: Dysuria Musculoskeletal: Reports: Joint Pain. Denies: Joint Tenderness Skin: Denies: Rash, Wounds Neurological: Denies: Numbness, Tingling, Focal weakness Psychiatric: Denies: Anxiety, Depression, Homicidal Ideations, Suicidal Ideations Hematologic/ Lymphatic: Denies: Easy Bruising, Easy Bleeding - Physical Exam Vitals/I&O's: Vital Signs Temp Pulse Resp BP Pulse Ox 98.5 F 100 16 110/70 98 11/12/19 13:39 11/12/19 13:39 11/12/19 13:39 11/12/19 13:39 11/12/19 13:39 Oxygen Flow Rate (L/min) 2 Oxygen Delivery Method Nasal Cannula Weight: 146 lb 9.718 oz Body Mass Index (BMI) 21.6 Intake and Output for Last 24 Hours 11/10/19 11/11/19 11/12/19 23:59 23:59 23:59 Intake Total 1000 / 1050 1691.67 / 1691.67 Output Total 575 / 575 Balance 1000 / 925 1116.67 / 1116.67 General: Alert, Oriented x3, Cooperative HEENT: Atraumatic, PERRLA, EOMI, Normocephalic Neck: Supple, No JVD, Negative Carotid Bruits Lungs: Clear to auscultation, Normal air movement Cardiovascular: Regular rate, No murmurs Abdomen: Bowel Sounds Present, Soft, Non Tender Extremities: No edema, Capillary Refill Less than 3 Seconds Skin: No rashes, No breakdown Musculoskeletal: Tenderness - left hip pain, arom/prom ankles intact, compts soft, sgi, no calf pain, neg homans, c/o left hip pain with movement of left lower extremity, negative secondary survey Neurological: Cranial nerves II-XII grossly intact Psych/Mental Status: Normal Affect, Appropriate Laboratory Results 11/11/19 17:05: Crossmatch See Detail 11/11/19 17:10: WBC 7.0, RBC 2.90 L, Hgb 10.5 L, Hct 31.0 L, MCV 106.9 H, MCH 36.2 H, MCHC 33.9, RDW Std Deviation 63.7 H, RDW Coeff of Nannette 16.2 H, Plt Count 304, MPV 11.9, Immature Gran % (Auto) 0.700, Neut % (Auto) 85.3 H, Lymph % (Auto) 5.0 L, Craig % (Auto) 6.7, Eos % (Auto) 1.9, Baso % (Auto) 0.4, Absolute Neuts (auto) 5.9, Absolute Lymphs (auto) 0.35 L, Nucleated RBC % 0, Differential Comment , Diff Path Review Reviewed, Platelet Estimate ADEQUATE, RBC Morphology N CHROM, Anisocytosis 2+, Ovalocytes 2+, Acanthocytes (Spur) 2+, Schistocytes 1+ 11/11/19 17:10: PT 14.7, INR 1.2, APTT 28.7 11/11/19 17:10: Sodium 140, Potassium 3.8, Chloride 106, Carbon Dioxide 26.0, Anion Gap 8, BUN 30 H, Creatinine 1.25, Estim Creat Clear Calc 56.00, Est GFR (MDRD) Af Amer 74, Est GFR (MDRD) Non-Af 61, BUN/Creatinine Ratio 24.0 H, Glucose 118 H, Calcium 8.6 11/11/19 17:10: Iron 87, TIBC 204 L, Iron Saturation 42.6, Ferritin 435 H, Folate 6.60, TSH 20.20 H, Free T4 1.13 11/11/19 17:10: Magnesium 1.7, Troponin I < 0.015 11/11/19 17:10: Vitamin B12 804 11/11/19 17:10: Blood Type A POSITIVE, Antibody Screen NEGATIVE 11/11/19 20:35: Troponin I < 0.015 11/12/19 00:35: Troponin I < 0.015 11/12/19 03:40: COVID-19 (LARRY) Negative 11/12/19 05:35: WBC 7.8, RBC 2.36 L, Hgb 8.3 L, Hct 25.2 L, MCV 106.8 H, MCH 35.2 H, MCHC 32.9, RDW Std Deviation 63.0 H, RDW Coeff of Nannette 16.2 H, Plt Count 246, MPV 11.8, Immature Gran % (Auto) 0.400, Neut % (Auto) 81.8 H, Lymph % (Auto) 8.3 L, Craig % (Auto) 8.8, Eos % (Auto) 0.4, Baso % (Auto) 0.3, Absolute Neuts (auto) 6.4, Absolute Lymphs (auto) 0.65 L, Nucleated RBC % 0 11/12/19 05:35: Sodium 139, Potassium 4.2, Chloride 107, Carbon Dioxide 26.0, Anion Gap 6, BUN 36 H, Creatinine 1.19, Estim Creat Clear Calc 55.88, Est GFR (MDRD) Af Amer 78, Est GFR (MDRD) Non-Af 65, BUN/Creatinine Ratio 30.3 H, Glucose 118 H, Calcium 7.8 L, Total Bilirubin 1.60 H, AST 100 H, ALT 84 H, Alkaline Phosphatase 97, Total Protein 5.2 L, Albumin 2.0 L, Globulin 3.2, Albumin/Globulin Ratio 0.6 L, Triglycerides 100, Cholesterol 234 H, LDL Cholesterol 196 H, VLDL Cholesterol 20, HDL Cholesterol 18 L 11/12/19 05:35: Phosphorus 4.7 Current Medications Acetaminophen (Tylenol) 650 mg PO Q6H PRN PRN PRN Reason: Pain Score 1-10 /Temp>100.7 Albuterol Sulfate (Ventolin Aerosols) 2.5 mg INHALATION Q2H PRN PRN PRN Reason: Dyspnea, wheezing Duloxetine HCl (Cymbalta) 60 mg PO QHS [facility] Furosemide (Lasix) 40 mg PO QODAY@2200 [facility] Gabapentin (Neurontin) 600 mg PO 4X/DAY [facility] Last Admin: 11/12/19 14:50 Dose: Not Given Documented by: Hydralazine HCl (Apresoline Iv) 10 mg IV Q4H PRN PRN PRN Reason: SBP > 160 Sodium Chloride () 1,000 mls @ 100 mls/hr IV .Q10H [facility] Last Infusion: 11/12/19 13:47 Dose: 100 mls/hr Documented by: Lisinopril (Zestril) 5 mg PO DAILY [facility] Last Admin: 11/12/19 10:37 Dose: Not Given Documented by: Metoprolol Succinate (Toprol Xl (Beta Anand)) 100 mg PO QHS [facility] Morphine Sulfate () 2 - 4 mg IV Q3H PRN PRN PRN Reason: Pain Score 6-10/10 Last Admin: 11/12/19 13:44 Dose: 2 mg Documented by: Morphine Sulfate () 1 mg IV Q4H PRN PRN PRN Reason: Pain Score 4-5/10 Oxycodone HCl (Oxyir) 5 mg PO Q4H PRN PRN PRN Reason: Pain Score 4-5/10 Last Admin: 11/11/19 21:01 Dose: 5 mg Documented by: Sodium Chloride () 10 - 40 ml IV UD PRN PRN Reason: SALINE FLUSH Last Admin: 11/11/19 23:47 Dose: 10 ml Documented by: Spironolactone (Aldactone) 100 mg PO QHS [facility] Tamsulosin HCl (Flomax) 0.4 mg PO QHS [facility] Last Admin: 11/11/19 21:01 Dose: 0.4 mg Documented by: Assessment/Plan All Active Problems Closed left hip fracture (Acute) New onset a-fib (Acute) xray- left displaced subtrochanteric fracture or today ancef Reviewed the pre-operative plans with the patient. Risks and benefits of the procedure were fully explained, including but not limited to infection, neurovascular injury, continued pain, arthritis, stiffness, need for further surgery, re-injury, DVT, PE, general risks of anesthesia, and loss of limb or life. The patient understands all the risks and does wish to proceed with written consent for left hip imn possible open. discussed risk of increased morbidity and mortality from hip fractures merary d/t poor health. patient aware of risks and morbidities associated with hip fractures. icu postop per anesthesia anticoag postop will d/w son postop All questions answered. Patient in agreement of plan. to OR today for left hip cephalomedullary nailing, possible open fixation.
--- NOTE | 2019-11-12 15:41 | OP.PCM_ITS ---
Report of Operation Date of Procedure: 11/12/19 Pre-Operative Diagnosis: left subtrochanteric fracture Post-Operative Diagnosis: same Surgery/Procedure Performed:: left hip imnail buffet manager: Zeus Haq Type of Anesthesia:: General Anesthesiologist: Alex Garcia Specimen's removed: blood from fracture site/incision Estimated Blood Loss (mL): see anesth Fluids Replaced: see anesth, 6 units prbc Description of Procedure: Preop note Patient is a 69-year-old male with chronic medical conditions who fell when his dog pulled him, landing on his left hip. Patient states he had immediate pain and difficulty ambulating so went by squad to the emergency room. X-ray showed a displaced subtrochanteric fracture. Patient states no antecedent pain prior to the fall. Patient on admission was found to have new A. fib echo was ordered today. Discussed with patient in detail preoperatively risks of surgery specially hip surgery. Risk including but not limited to blood loss, blood clot, infection, neurovascular G, failure procedure, loss of life and loss of limb. Discussed that he did not have the surgery most likely would be bedridden. Patient states he is in a lot of pain would like his left hip fixed. Discussed morbidity mortality of left hip fractures with patient. He told he give us the son to call postoperatively and I do have his numbers. Operative note Patient seen in preoperative holding her. Left hip was marked. Patient brought to the operating placed supine on the operating table. Sign, anesthesia, antibiotics were administered. Left leg was prepped and draped usual sterile technique after we get provisional reduction and adequate alignment on fluoroscopy. We then use a guidewire at the tip of the greater choke about 6 degrees. Then made about a 4 cm incision. We then drilled over overdrilled for opening reamer after we had good starting point for our nail. At that point did notice that there was a pulsating amount of blood coming from his hip incision. Immediately called for helicopter and our vascular surgeon. I also immediately called for Doppler. He had a good Doppler pulse both of his femoral artery his posterior popliteal artery and his posterior tibial Sheri artery. I then extend the incision distally. Dissected down to the level of the fracture trying to visualize any bleeders which I did not visualized. We did try to coagulating that we did encounter however the bleeding was coming from the bone. At that time contacted [facility] for transfer to [facility]. We called for the helicopter at that point came back and said that because of the inclement weather they were not able to transfer the patient via helicopter. Discussed the case further with [facility] said to place the nail and cement on the inside of the nail which we did place in order to tamponade bleeding from bone. At that time there was concern we will decrease in amount of bleeding. At that point patient coded please see chart for further details. We then closed the incision with running IT band with a whipstitch 1 Vicryl the subcuticular skin with 2-0 Vicryl and skin with beverley. At the point where we are closing his IT band there was oozing but there was no there was not a lot of drainage. We did check his incision multiple times at the end after applying a compressive dressing to ensure that he was not bleeding profusely which was not from the incision. At this point unable to transfer him to [facility] due to inclement weather so contacted [facility] for transfer. discussed with Dr. Lechuga at [facility] as this is not a definitive fracture fixation for subtrochanteric and may need a CT arteriogram with embolization via IR for definitive fracture fixation we do not have the capabilities here at the hospital. dr lechuga told us to put pt on levaphed, give txa low dose and kayexlaate. patient transferred to our ICU, discussed with hospitalist and pt to be transferred to [facility]. attempted numerous times to contact son, but no voicemail set up and no answer. Grafts/Implants Used: [id number] synthes intramedullary nail - Complications patient intraop blood loss /bleeding from bone coded intraop
--- NOTE | 2019-11-12 16:08 | RAD_ITS ---
STUDY: X-RAY - LEFT HIP REASON FOR EXAM: Incomplete hip nailing secondary to patient unsatisfactory condition. TECHNIQUE: 3 intraoperative images of the left hip. COMPARISON: None. FINDINGS: There is intramedullary fanny placement transfixing a subtrochanteric femoral fracture. Electronically Signed: Eugene Conklin MD at 10:52 EDT Tel , Service support , RAD/Hip Min 2 Views (Portable)
--- NOTE | 2019-11-12 16:11 | NURSING ---
Report called to LOUISE Pabon in ICU
[2019-11-12 17:31] LABS: Hematocrit 23.5 % (40-54); Hemoglobin 7.9 g/dL (13.0-16.5); Mean Corp Hgb Conc 33.6 g/dL (32-36); Mean Corpuscular Hgb 32.8 pg (27.0-32.0); Mean Corpuscular Volume 97.5 fL (80-94); Platelet Count 131 K/mm3 (150-450); RBC Distribution Width CV 17.2 % (11.6-14.6); RBC Distribution Width SD 60.3 fl (35.1-43.9); Red Blood Count 2.41 M/mm3 (4.6-6.2); White Blood Count 6.8 K/mm3 (4.4-11.0)
--- NOTE | 2019-11-12 17:33 | CPS ---
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
[2019-11-12 17:41] LABS: Base Excess -5 mmol/L (-2 to +2); Bicarbonate 20.5 mmol/L (22-26); Blood Gas Specimen Type ART; FI02 100; O2 Delivery Device Adult Vent; PO2 455 mmHG (75-100); SITE Art Line; SO2 100 % (95-99); Total Carbon Dioxide 22 mmol/L; Vt 700; pCO2 38.3 mmHg (35-45); pH 7.34 (7.35-7.45)
[2019-11-12 17:42] LABS: Anion Gap 6 (5-15); BUN 32 mg/dL (7-18); BUN/Creat Ratio 38.2 RATIO (10-20); Chloride 117 mmol/L (98-107); Creatinine, Serum 0.84 mg/dL (0.70-1.30); EST Glomerular Filtration Rate 97 mL/min (>60); Est Glom Filt Rate - Afr Amer 117 mL/min (>60); Estimated Creatinine Clearance 79.17 ml/min; Glucose 131 mg/dL (74-106); Magnesium 1.4 mg/dL (1.6-2.6); Potassium 4.2 mmol/L (3.5-5.1); Sodium Level 145 mmol/L (136-145)
[2019-11-12 17:51] LABS: International Normalized Ratio 1.6; Prothrombin Time (Protime)PT. 18.4 SECONDS (11.7-14.9)
[2019-11-12 17:52] LABS: Partial Thromboplast Time 38.3 Seconds (24.1-36.2)
[2019-11-12 17:58] LABS: Fibrinogen 140 mg/dl (203-444)
[2019-11-12] MEDS: 0.9% Saline Lock 10 ML Syringe IV ×2 (18:33→20:01)
[2019-11-12 18:46] LABS: Allen Test Positive; Base Excess -16 mmol/L (-2 to +2); Bicarbonate 13.9 mmol/L (22-26); Blood Gas Specimen Type ART; FI02 100; O2 Delivery Device Adult Vent; PO2 528 mmHG (75-100); SO2 100 % (95-99); Total Carbon Dioxide 15 mmol/L; Vt 600; pCO2 44.4 mmHg (35-45)
--- NOTE | 2019-11-12 18:50 | CPS ---
Critical Blood Gas handed to Amelia Esparza RN @2148 Milo DORMAN
[2019-11-12 18:52] LABS: Absolute Lymphocyte Count 2.49 X10^3/uL (0.83-4.51); Absolute Neutrophil Count 7.8 X10^3/uL (2.0-7.7); Basophil# 0.05 X10^3/uL; Basophil% 0.4 % (0-1); Eosinophil# 0.19 X10^3/uL; Eosinophils% 1.6 % (0-5); Hematocrit 26.2 % (40-54); Hemoglobin 8.4 g/dL (13.0-16.5); Lymphocyte # 2.49 X10^3/ul (4.0); Lymphocyte % 21.3 % (19-41); Mean Corp Hgb Conc 32.1 g/dL (32-36); Mean Corpuscular Hgb 31.6 pg (27.0-32.0); Mean Corpuscular Volume 98.5 fL (80-94); Mean Platelet Vol. 11.5 fl (6.2-12.0); Monocyte# 0.62 X10^3/uL; Monocyte% 5.3 % (0-10); NRBC Flagged by Analyzer 0 % (0-5); Neutrophil # 7.77 X10^3/uL (2.7-7.7); Neutrophil % 66.7 % (47-70); Platelet Count 100 K/mm3 (150-450); RBC Distribution Width CV 16.3 % (11.6-14.6); RBC Distribution Width SD 57.4 fl (35.1-43.9); Red Blood Count 2.66 M/mm3 (4.6-6.2); White Blood Count 11.7 K/mm3 (4.4-11.0)
--- NOTE | 2019-11-12 19:12 | RAD_ITS ---
STUDY: X-RAY CHEST REASON FOR EXAM: Male, 69 years old. ETT PLACEMENT AND LINE PLACEMENT. ALSO WANTS TO CHECK FOR RIB FRACTURES AFTER CPR WAS PREFORMED. TECHNIQUE: AP portable COMPARISON: 11/11/2019 FINDINGS: The lungs are clear and expanded. There is no demonstrated pleural abnormality. Central line noted on the right with tip in distal superior vena cava. The heart is enlarged.. Normal mediastinum and juve. Normal visualized pulmonary arteries. Tortuous aortic arch and descending thoracic aorta. Endotracheal tube present with tip 6 cm proximal to stan. Normal visualized thoracic spine. Normal visualized ribs, clavicles, and shoulders. There is no demonstrated abnormality of the visualized soft tissue structures of the upper abdomen. RAD/Chest 1 View IMPRESSION: No acute cardiopulmonary pathology status post intubation. Electronically Signed: Christiano Cartwright MD at 20:22 EDT , Service support ,
[2019-11-12] MEDS: 0.9% Normal Saline 1,000 ML 50 ML IV (19:15)
[2019-11-12 19:26] LABS: Bedside Glucose 201 mg/dL (70-110)
--- NOTE | 2019-11-12 19:48 | PCM.HOSP.N ---
Hospitalist Note Patient transition from OR to the ICU, intubated, sedated, currently BPs ranging 75-100 over 40s to 60s, will have norepinephrine initiated if necessary, general surgery and orthopedic surgery as well as anesthesia still present. Dr. Christianson discussed case with myself and also Dr. Archer, overnight hospitalist noted plan for transition to [place] to the ED as a trauma patient. Postoperative and cardiac arrest likely secondary to emboli in addition to hypovolemic shock secondary to rapid blood loss per discussion with orthopedic surgery. Current labs CBC with WBC 11.7, hemoglobin 8.4 previously 8.3 and prior to that 10.5, platelet 100 with left shift, coags with PT 18.4, INR 1.6, ABG with recent intubation obtained with pH 7.10, O2 saturation 100, PCO2 44.4, PO2 528 with further ventilatory adjustments being made, BMP with carbon oxide 117, BUN/creatinine 32/0.4, glucose 131, magnesium 1.4, will supplement with IV magnesium as well as bicarb. Awaiting transport for transition to trauma ED.
[2019-11-12] MEDS: Sodium Bicarbonate 8.4% 50 ML Syringe 50 MEQ IV (20:07)
[2019-11-12] MEDS: Magnesium Sulfate 4gm/100mL 4 GM/100 ML IV.SOLN. IV (20:09)
--- NOTE | 2019-11-12 20:50 | NURSING ---
Transport team here for pt at this time. Team given bedside report and pt transferred to their monitor/vent at this time.
--- NOTE | 2019-11-12 20:53 | PCM.HOSP.N ---
Hospitalist Note Patient was briefly seen and examined in the room. The patient critical condition was notified to me by Dr. Rina Christianson and Dr. Holly Quick. Discussed with the nursing staff in ICU. He is intubated, on vent support. Heart rate in upper 110s, blood pressure 119/87 on vasopressor support, Levophed drip. Patient has a right IJ triple-lumen catheter. Patient on respiratory rate 26 to 28 weeks.. Currently on 60% FiO2. Patient had large number of blood transfusion, about 8 PRBC and 2 units of FFP. Patient is full code otherwise denies chest pain. Opens eyes on command and respond to simple questions but guarding head. Patient can move left ankle and toes. On exam Air entry bilaterally equal. On vent support Heart: On levo pressor support. Pulses are palpable but weak. Patient has arterial line BILLING ASSISTANT: Opens eyes, difficult to evaluate. Extremities: Left hip dressing site: No soakage of blood, dry. Left femoral pulse weak Labs reviewed and managed by Dr. Holly Quick Leukocytosis, H&H 8.4/26.2. Platelet count 100,000. Fibrinogen 140. INR 1.6 shows pH 7.1/40 5/528 on 100% FiO2 BMP calcium 7.0, magnesium 1.4 Patient had calcium gluconate and IV magnesium sulfate. Patient is in the process of getting transferred to [facility]. EMS transport is in the ICU.
--- NOTE | 2019-11-12 21:37 | NURSING ---
Report called to Jody gregg, for unit T2 bed 221. Aware that attempts to contact son were made, but were unsuccessful to update him on pts condition/transfering to outside hospital, sons phone number given to Jody gregg. Aware that transport already left facility with pt and are in route.
--- NOTE | 2019-11-13 | HIP_PTH ---
PATIENT: LAUREL PEREZ LOC: [facility] U#:[id number] AGE/SX: 69/M ROOM: ICU02 RE11/11/[address]: Dr. Marisela Christianson DO : 1950 BED: 1 DIS: 11/12/2019 SPEC #: [id number] RECD: 11/13/19 13:47 STATUS: JOSE D REQ #: [id number] ARANZA: 11/13/19 00:[address]: Tania Mora DEPT: SURGICAL PATHOLOGY RECD BY: Que Hernandez ENTERED: 11/13/19 13:47 SP TYPE: TOTAL HIP OTHR DR: DO Dr. Holly Judge MD Dr. Kathryn Lee, DO Dr. Mark Elderbrock, MD Tissues: Hip, NOS Procedures: Surgery Specimen Level IV Comments: @ Ordering doctor for LUISA edited from to @ by CRYSTAL at 11/17/19 1140 @ Submitting doctor edited from to @ by CRYSTAL at 11/17/19 1140 HEADER OPERATION: Insertion of femoral nail, Synthes PRE-OP DIAGNOSIS: Closed left hip fracture TISSUE SUBMITTED: Left hip soft tissue bone and marrow MICROSCOPIC DIAGNOSIS Left hip soft tissue and marrow, excision: Consistent with metastatic hepatocellular carcinoma. AM:sarah 11/17/19 COMMENT Immunohistochemistry ([id number]) supports the above diagnosis. This case was reviewed and diagnosis discussed with Dr. Mora on 11/17/19 at 9:50 a.m. Case has been reviewed in consultation with Dr. Lion who concurs with the above diagnosis. IDC:[email or web address] MICROSCOPIC DESCRIPTION Slides are reviewed. GROSS DESCRIPTION Received is one container labeled with the patient's name and designated left hip, soft tissue and marrow. The specimen consists of a multiple irregular fragments of light cook soft tissue that in aggregate measure 5 x 2.5 x 0.3 cm. The specimen is totally submitted in two cassettes. / AM:sarah 11/13/19 TC:0 CPT: 16449
--- NOTE | 2019-11-13 | IMM_PTH ---
PATIENT: LAUREL PEREZ LOC: [facility] U#:[id number] AGE/SX: 69/M ROOM: ICU02 RE11/11/[address]: Dr. Marisela Christianson DO : 1950 BED: 1 DIS: 11/12/2019 SPEC #: [id number] RECD: 11/16/19 13:13 STATUS: JOSE D REQ #: [id number] ARANZA: 11/13/19 00:[address]: Tania Mora DEPT: IMMUNOHISTOCHEMISTRY RECD BY: Ann Yadav ENTERED: 11/16/19 13:17 SP TYPE: IMMUNO OTHR DR: DO Dr. Holly Judge MD Dr. Kathryn Lee, DO Dr. Mark Elderbrock, MD Tissues: Hip, NOS Procedures: RCC (add) Thyroglobulin (add) NAPSIN A (add) CD45 (add) CEA (add) CHROMO (add) CK19 (add) CK20 (add) CK7 (add) CK8 (add) SHEIKH-2 (add) HEP PAR (add) KI-67 (add) MPO (add) P53 (add) TTF1 (add) Vimentin (add) 34BE12 (add) FACTOR VIII (add) Pankeratin (initial) P40 (add) CDX2 (add) CD44 (add) PSAP (add) S-100 (add) Comments: @ Ordering doctor for s100. edited from to @ by CRYSTAL at 11/17/19 1140 @ Ordering doctor for RCC. edited from to @ by CRYSTAL at 11/17/19 1140 @ Ordering doctor for THYRO. edited from to @ by RGOOD at 11/17/19 1140 @ Ordering doctor for NAP. edited from to DR.ACHICO Oleary by BRODERICKOD at 11/17/19 1140 @ Ordering doctor for CA125. edited from to DR.ACHICO Oleary by BRODERICKOD at 11/17/19 1140 @ Ordering doctor for CD45. edited from to DR.ACHICO Oleary by CRYSTAL at 11/17/19 1140 @ Ordering doctor for CEA. edited from to DR.ACHICO Oleary by BRODERICKOD at 11/17/19 1140 @ Ordering doctor for CHROMO. edited from to DR.ACHICO Oleary by CRYSTAL at 11/17/19 1140 @ Ordering doctor for CK19. edited from to DR.ACHICO Oleary by BRODERICKOD at 11/17/19 1140 @ Ordering doctor for CK20. edited from to DR.ACHICO Oleary by CRYSTAL at 11/17/19 1140 @ Ordering doctor for CK7. edited from to DR.ACHICO Oleary by BRODERICKOD at 11/17/19 1140 @ Ordering doctor for CK8. edited from to DR.ACHICO Oleary by CRYSTAL at 11/17/19 1140 @ Ordering doctor for SHEIKH-2. edited from to DR.ACHICO Oleary by CRYSTAL at 11/17/19 1140 @ Ordering doctor for HEPPAR. edited from to DR.ACHICO Oleary by CRYSTAL at 11/17/19 1140 @ Ordering doctor for KI67. edited from to DR.ACHICO Oleary by CRYSTAL at 11/17/19 1140 @ Ordering doctor for MPO. edited from to DR.ACHICO Oleary by CRYSTAL at 11/17/19 1140 @ Ordering doctor for P53. edited from to DR.ACHICO Oleary by CRYSTAL at 11/17/19 1140 @ Ordering doctor for TTF1. edited from to DR.ACHICO Oleary by CRYSTAL at 11/17/19 1140 @ Ordering doctor for VIM. edited from to DR.ACHICO Oleary by CRYSTAL at 11/17/19 1140 @ Ordering doctor for 34BE12. edited from to DR.ACHICO Oleary by CRYSTAL at 11/17/19 1140 @ Ordering doctor for FACTOR VIII. edited from to @ by RGOOD at 11/17/19 1140 @ Ordering doctor for PANK edited from to @ by RGOOD at 11/17/19 1140 @ Ordering doctor for P40. edited from to DR.ACHICO Oleary by RGOOD at 11/17/19 1140 @ Ordering doctor for CDX2. edited from to @ by RGOOD at 11/17/19 1140 @ Ordering doctor for CD44. edited from to DR.ACHICO Oleary by RGOOD at 11/17/19 1140 @ Ordering doctor for PSAP. edited from to DR.ACHICO Oleary by RGOOD at 11/17/19 1140 @ Submitting doctor edited from to DR.ACHICO Oleary by RGOOD at 11/17/19 1140 [facility] & [place] [id number] SPECIMEN INFORMATION: Tissue Source: Left hip soft tissue bone and marrow Clinical Info: Closed left hip fracture Specimen Number: [id number] #2 CPT code: 80347, 66246 x24 METHODOLOGY: Deparaffinized sections of prefer/formalin-fixed tissue or PAP/DQ stained slides are incubated with monoclonal/polyclonal antibodies/oligonucleotide probes. Localization is made via biotin free immunoperoxidase method. Appropriate controls are performed and reacted as expected. Results on target cell population are indicated in the following table: RESULTS: ANTIBODY / CLONE RESULT Block 2 AE1-3 (AE1/AE3/PCK26) negative CK7 (OV-TL12/30) negative CK8 (99hxbvK01) positive CK19 (A53-B/A2.26) negative CK20 (KS20.8) negative SHEIKH-2 (SP21) positive CDX2 (YMN2960R) negative CD45 (RP2/18) negative MPO (polyclonal) negative Vimentin (V9) positive, canalicular 34BE12 (34BE12) negative Factor VIII (R Ag) negative S-100 (4C4.9) negative Chromo (LK2H10) negative TTF-1 (8G7G3/1) negative Napsin A (Rabbit Polyclonal) negative HepPar (OCh1E5) positive RCC (PN-15) negative PSAP (PASE/4LJ) negative Thyro (2H11+6E1) negative anti-CD44 (SP37) positive, focal P40 (BC28) negative CEA (11-7/TF-3HB-1) positive, dim P53 (DO-7) positive, 15%, dim Ki-67 (30-9) positive, 40% These tests were developed and their performance characteristics determined by [facility]. They may not have been cleared or approved by the U.S. Food and Drug Administration. The FDA has determined that such clearance or approval is not necessary. The above immunohistochemical/dualISH markers are ordered and reviewed by the Pathologist. INTERPRETATION: Left hip soft tissue bone and marrow: Consistent with metastatic hepatocellular carcinoma. AM:sarah 11/17/19 Case has been reviewed in consultation with Dr. Lion who concurs with the above diagnosis. IDC:[id number]
--- NOTE | 2019-11-13 15:46 | DS.PCM_ITS ---
Discharge Date and Diagnosis Date of Admission: 11/11/19 Date of Discharge: 11/12/19 - Secondary Discharge Diagnosis Chronic Problems: Chronic Problems Hepatitis C (Chronic) Liver cirrhosis (Chronic) HTN (hypertension) (Chronic) Tobacco use (Chronic) Anxiety and depression (Chronic) Anemia (Chronic) Hospital Course and Treatment Imaging Results: STUDY: X-RAY - PELVIS AND LEFT HIP REASON FOR EXAM: Male, 69 years old. fall, left hip pain TECHNIQUE: Reason views of the pelvis and hip. COMPARISON: None. FINDINGS: There is a non-specific bowel gas pattern. Normal visualized soft tissue structures. Normal bilateral iliac wings, sacroiliac joints and visualized sacrum. Normal bilateral superior and inferior pubic rami. Normal pubic symphysis. Normal bilateral ischial tuberosities. There is an acute spiral fracture of the subtrochanteric femoral shaft with overlapping and lateral angulation of fracture fragments. RAD/HIP, UNI W/ Pelvis 2-3 Views IMPRESSION: Acute displaced and angulated subtrochanteric fracture of the left hip STUDY: X-RAY CHEST REASON FOR EXAM: Male, 69 years old. Pre-op for hip fracture TECHNIQUE: 2 AP portable views COMPARISON: 2011 FINDINGS: EKG leads overlie the chest. There are interstitial changes of the lungs. There is no demonstrated pleural abnormality. Normal size heart. Normal mediastinum and juve. Normal visualized pulmonary arteries. Normal visualized aortic arch and descending thoracic aorta. Normal visualized thoracic spine. Normal visualized ribs, clavicles, and shoulders. There is no demonstrated abnormality of the visualized soft tissue structures of the upper abdomen. RAD/Chest 1 View (Portable) IMPRESSION: Chronic interstitial changes, no superimposed acute pulmonary process ECHO Procedure This was a 2D Doppler, Color Flow transthoracic echocardiogram. The study was technically difficult. Patient scanned supine due to left hip fracture. Exam performed portable in patient room. Left Ventricle Normal LV size. The estimated ejection fraction is 70 %. Unable to assess diastolic dysfunction. No regional wall motion abnormalities noted. Right Ventricle Normal RV size. Normal systolic function. Atria The left atrium is moderately enlarged. The right atrium is mildly enlarged. No doppler evidence for ASD. Mitral Valve There is no mitral valve stenosis. Trivial mitral valve insufficiency. Tricuspid Valve There is no tricuspid stenosis. Pulmonary artery systolic pressure is 35-40 mmHg. Trivial tricuspid valve insufficiency. Aortic Valve Trisinus/trileaflet aortic valve. Moderate diffuse aortic valve thickening. Mild aortic stenosis. No aortic valve insufficiency. Pulmonic Valve There is no pulmonic valvular stenosis. No pulmonic valve insufficiency. Great Vessels Normal aortic root. Pericardium/Pleural No pericardial effusion. MMode/2D Measurements & Calculations LVIDd: 4.0 cm IVSd: 0.89 cm LVOT diam: 2.2 cm LVIDs: 2.2 cm LVPWd: 0.86 cm LVOT area: 3.8 cm2 RVDd: 3.3 cm FS: 45.0 % Ao root diam: 4.7 cm LAV(MOD-bp): 56.8 ml LA A4 area: 23.2 cm2 LAV(MOD-bp) Indexed: 31.4 ml/m2 LAV(MOD-sp2): 42.4 ml LAV(MOD-sp4): 68.4 ml __ LA dimension(2D): 3.7 cm RA A4 area: 19.5 cm2 Doppler Measurements & Calculations MV E max andres: 99.4 cm/sec Ao V2 max: 213.4 cm/sec LV V1 max: 124.3 cm/sec Ao max P.3 mmHg LV V1 max P.2 mmHg Ao V2 mean: 144.8 cm/sec LV V1 mean P.3 mmHg Ao mean P.4 mmHg LV V1 mean: 85.2 cm/sec Ao V2 VTI: 37.8 cm LV V1 VTI: 22.9 cm DUNCAN(I,D): 2.3 cm2 DUNCAN(V,D): 2.2 cm2 _ SV(LVOT): 86.3 ml PA V2 max: 129.8 cm/sec TR max andres: 268.1 cm/sec TR max P.8 mmHg Interpretation Summary The estimated ejection fraction is 70 %. Unable to assess diastolic dysfunction. The left atrium is moderately enlarged. Trivial mitral valve insufficiency. Mild aortic stenosis. Summary of Care Provided: Mr. Mcnamara is a 69-year-old male who presented to the ED on the night of 11/10 after he fell when his dog pulled him, landing on his left hip. He stated he had immediate pain and difficulty ambulating. X-ray showed a displaced subtrochanteric fracture. He stated that he had no antecedent pain prior to the fall. He was also found on admission was found to have new A. fib which was rate controlled and an ECHO was done that showed and EF of 70% and mild with mod LAE. He was then take to the OR on the afternoon of 11/12/2019 after 2 u of PRBC were given for a hgb of 8.3 to optimize O2 carrying capacity. During the surgery after drilling for the nail placement pulsatile blood began coming from his hip incision. Vascular surgery and [facility] were called at that time for assistance. Doppler of the femoral aa was assessed at that time and there was good flow in B femoral aa. It was discerned that the bleeding was coming from the bone. [facility] was unable to take the pt for transfer at that time 2/2 inclement weather and the helicopters were not able to fly. The case was discussed with the physicians at [facility] and it was their opinion that most likely renal cell and to place the nail and cement the inside of the nail which is what was done. The bleeding did improve. The pt then suffered a CPA where he received 4 rounds of CPR and ROSC was obtained. Meanwhile the pt was getting 5 u PRBC and 2 u FFP. hiw wound was closed and he was transferred to the ICU here in critical condition. Since he was unable to transfer to [facility] and there was need for IR to be available for recurrent bleeding and embolization the pt was transferred to the ICU at [facility] with the accepting physician being Dr. Patricia from trauma. He was transported on ground. Upon transfer he had levophed running for BP support. Mr. Mcnamara was trying to talk around his ETT in the ICU prior to being transferred. It was suspected that his arrest was caused by the combination of Hemorrhagic and Obstructive shock potentially related to a fatty embolus. Dr. Mora attempted several times to talk to the son but was unable to get in contact with him and there was no set up. - Physical Exam Vitals/I&O's: Vital Signs Temp Pulse Resp BP Pulse Ox 96.9 F L 107 H 20 H 114/78 100 11/12/19 20:30 11/12/19 20:50 11/12/19 20:50 11/12/19 20:50 11/12/19 20:50 Oxygen Flow Rate (L/min) 2 Oxygen Delivery Method Mechanical Ventilator Weight: 66.5 kg Body Mass Index (BMI) 21.6 Intake and Output for Last 24 Hours 11/11/19 11/12/19 11/13/19 23:59 23:59 23:59 Intake Total 1000 / 1050 2698.19 / 2698.19 Output Total 875 / 875 Balance 1000 / 925 1823.19 / 1823.19 Laboratory Results 11/11/19 17:05: Crossmatch See Detail 11/12/19 17:16: Sodium 145, Potassium 4.2, Chloride 117 H, Carbon Dioxide 22.0, Anion Gap 6, BUN 32 H, Creatinine 0.84, Estim Creat Clear Calc 79.17, Est GFR (MDRD) Af Amer 117, Est GFR (MDRD) Non-Af 97, BUN/Creatinine Ratio 38.2 H, Glucose 131 H, Calcium 7.0 L, Magnesium 1.4 L 11/12/19 17:16: PT 18.4 H, INR 1.6, APTT 38.3 H, Fibrinogen 140 L 11/12/19 17:16: WBC 6.8, RBC 2.41 L, Hgb 7.9 L, Hct 23.5 L, MCV 97.5 H D, MCH 32.8 H, MCHC 33.6, RDW Std Deviation 60.3 H, RDW Coeff of Nannette 17.2 H, Plt Count 131 L, MPV 11.0 11/12/19 17:25: Specimen Type ART, Sample Site Art Line, pH 7.34 L, Bicarbonate Actual 20.5 L, Total CO2 22, Base Excess -5 L, O2 Saturation 100 H, O2 % 100, ABG pCO2 38.3, ABG pO2 455 H*, O2 Delivery Device Adult Vent, Tidal Volume 700 11/12/19 18:35: WBC 11.7 H, RBC 2.66 L, Hgb 8.4 L, Hct 26.2 L, MCV 98.5 H, MCH 31.6, MCHC 32.1, RDW Std Deviation 57.4 H, RDW Coeff of Nannette 16.3 H, Plt Count 100 L, MPV 11.5, Immature Gran % (Auto) 4.700 H, Neut % (Auto) 66.7, Lymph % (Auto) 21.3, Tensas % (Auto) 5.3, Eos % (Auto) 1.6, Baso % (Auto) 0.4, Absolute Neuts (auto) 7.8 H, Absolute Lymphs (auto) 2.49, Nucleated RBC % 0 11/12/19 18:39: Specimen Type ART, pH 7.10 L*, Bicarbonate Actual 13.9 L, Total CO2 15, Base Excess -16 L, O2 Saturation 100 H, O2 % 100, ABG pCO2 44.4, ABG pO2 528 H*, Rusty Test Positive, O2 Delivery Device Adult Vent, Tidal Volume 600 11/12/19 19:19: POC Glucose 201 H Home Medications: Medications to take at Discharge Lisinopril 5 mg PO DAILY 04/15/18 Duloxetine HCl 60 mg PO DAILY 11/11/19 Furosemide [Lasix] 40 mg PO DAILY 11/11/19 Gabapentin 600 mg PO 4X/DAY 11/11/19 Metoprolol Succinate [Toprol Xl] 100 mg PO DAILY 11/11/19 Spironolactone [Aldactone] 50 - 100 mg PO DAILY 11/11/19 Tamsulosin HCl 0.4 mg PO QHS 11/11/19 Primary Care Physician: Derrick Al MD [Primary Care Provider] - Medical Necessity - Tobacco Use Smoking Status: Current every day smoker Tobacco Use: Cigars Meaningful Use Info Meaningful Use Diagnoses (Choose all that apply): None applicable Inpatient E&M: 83109 Disch Hosp
[2019-11-16 07:11] LABS: Bedside Glucose 52 mg/dL (70-110)
[2019-11-16 07:11] LABS: Bedside Glucose 189 mg/dL (70-110)
== END 2019-11-12 21:20 | disposition short-term general hospital (02) | DRG 956 ==
LOC: ED 16:51 → PCU 18:33 → ICU 11-12 18:40
PROVIDERS: Anesthesiology; Internal Medicine; Orthopaedic Surgery; Admitting Provider Family Medicine; Emergency Provider Emergency Medicine; PCP Family Medicine; Visit Provider Internal Medicine
PROC: 0QS734Z Reposition Left Upper Femur with Internal Fixation Device, Percutaneous Approach (ICD-10-PCS; principal; 2019-11-12 14:30)
DX: S72.22XA Displaced subtrochanteric fracture of left femur, initial encounter for closed fracture (principal); T79.1XXA Fat embolism (traumatic), initial encounter; I46.8 Cardiac arrest due to other underlying condition; E43 Unspecified severe protein-calorie malnutrition; R57.1 Hypovolemic shock; N17.9 Acute kidney failure, unspecified; W18.30XA Fall on same level, unspecified, initial encounter; Z68.21 Body mass index [BMI] 21.0-21.9, adult; Y93.9 Activity, unspecified; Y92.9 Unspecified place or not applicable; I48.0 Paroxysmal atrial fibrillation; B18.2 Chronic viral hepatitis C; K74.60 Unspecified cirrhosis of liver; I10 Essential (primary) hypertension; F32.9 Major depressive disorder, single episode, unspecified; F41.9 Anxiety disorder, unspecified; G62.9 Polyneuropathy, unspecified; F17.290 Nicotine dependence, other tobacco product, uncomplicated; N40.0 Benign prostatic hyperplasia without lower urinary tract symptoms; D53.9 Nutritional anemia, unspecified; J44.9 Chronic obstructive pulmonary disease, unspecified; E78.5 Hyperlipidemia, unspecified; I35.0 Nonrheumatic aortic (valve) stenosis
CPT/HCPCS: 36415; 71045; 73502; 76000; 80048; 80053; 80061; 82607; 82728; 82746; 82803; 82962; 83540; 83550; 83735; 84100; 84439; 84443; 84484; 85025; 85027; 85384; 85610; 85730; 86850; 86900; 86901; 86920; 87635; 88305; 88311; 88341; 88342; 93005; 93306; 94002; 94799; 97802; 99251; 99285; 99406; C1713; C9132; J7030; J7040; J7050; P9016; P9017; A4216; G0463; J0610; J3475; J3490; U0003